=== PATIENT | female | born 1975 | race Caucasian/White ===

== ENCOUNTER → 2021-01-11 09:50 | Outpatient (BNVA) | payer OTHER, SELFPAY | PROVIDERS: Family Provider Family Medicine; PCP Family Medicine; Visit Provider Internal Medicine Rheumatology | DX: M33.10 Other dermatomyositis, organ involvement unspecified (principal); Z79.899 Other long term (current) drug therapy; R76.8 Other specified abnormal immunological findings in serum; Z11.59 Encounter for screening for other viral diseases; Z11.1 Encounter for screening for respiratory tuberculosis; Z20.822 Contact with and (suspected) exposure to COVID-19 | CPT/HCPCS: 99204 ==

== ENCOUNTER 2021-01-14 11:00 | Outpatient (CLI) | payer OTHER, SELFPAY ==
--- NOTE | 2021-01-14 11:15 | XR_ITS ---
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 Findings: No nodules, masses or effusions are seen. The heart is normal. The pulmonary vascularity is not increased. No pneumonia or pneumothorax is seen. There is a moderate dextroscoliosis of the thor acic spine XR/XR chest 2V* [id number] Impression: Negative chest.
== END 2021-01-14 11:01 | disposition home or self-care (01) ==
LOC: RADWPI 11:05
PROVIDERS: PCP Family Medicine; Visit Provider Internal Medicine Rheumatology
DX: Z79.899 Other long term (current) drug therapy (principal); M33.90 Dermatopolymyositis, unspecified, organ involvement unspecified
CPT/HCPCS: 71046

== ENCOUNTER → 2021-02-22 14:20 | Outpatient (BNVA) | payer OTHER, SELFPAY | PROVIDERS: PCP Family Medicine; Visit Provider Internal Medicine Rheumatology | DX: Z11.52 Encounter for screening for COVID-19 (principal); Z20.822 Contact with and (suspected) exposure to COVID-19; Z01.812 Encounter for preprocedural laboratory examination; M33.10 Other dermatomyositis, organ involvement unspecified; R76.8 Other specified abnormal immunological findings in serum; Z79.899 Other long term (current) drug therapy; Z71.89 Other specified counseling | CPT/HCPCS: 87635; 99214 ==

== ENCOUNTER 2021-02-28 08:46 | Outpatient (CLI) | payer OTHER, SELFPAY ==
--- NOTE | 2021-02-28 12:33 | PFTS_ITS ---
Date of Study:02/28/21 Date of Dictation: MECHANICS: Forced vital capacity (FVC) is normal. Forced expiratory volume in one second (FEV1) is normal. FEV1/FVC is normal. FLOW VOLUME LOOP: Normal. LUNG VOLUMES: Total lung capacity (TLC) is normal. Residual volume (RV) is normal. DIFFUSING CAPACITY FOR CARBON MONOXIDE: Normal. INTERPRETATION: The pulmonary function tests are normal. Lung volumes are normal. Gas exchange (DLCO) is normal. MTDD
== END 2021-02-28 08:47 | disposition home or self-care (01) ==
LOC: RT 08:53
PROVIDERS: PCP Family Medicine; Visit Provider Internal Medicine Rheumatology
DX: M33.90 Dermatopolymyositis, unspecified, organ involvement unspecified (principal); Z79.899 Other long term (current) drug therapy
CPT/HCPCS: 94010; 94726; 94729

== ENCOUNTER 2021-03-23 09:33 | Outpatient (CLI) | payer OTHER, SELFPAY ==
--- NOTE | 2021-03-23 09:40 | MM_ITS ---
WS: [id number] BILATERAL DIGITAL SCREENING MAMMOGRAM WITH CAD CLINICAL INFORMATION: SCREENING HISTORY: Screening mammogram. No current complaints. COMPARISON: TECHNIQUE: Bilateral CC and MLO. FINDINGS: The breast are composed of extremely dense tissue, which can limit the detection of small underlying mass lesions. Vascular calcification. A few punctate calcifications. Dense nodular breast tissue is s imilar in appearance. No suspicious focal mass, asymmetry, calcifications, or architectural distortio n. No evidence of malignancy. MM/[place] [id number] IMPRESSION: BI-RADS: 2-Benign FOLLOW UP: 1 Year Follow-up Recommend return to annual screening mammography.
== END 2021-03-23 09:34 | disposition home or self-care (01) ==
LOC: RADSHAW 09:36
PROVIDERS: PCP Family Medicine; Visit Provider Family Medicine
DX: Z12.31 Encounter for screening mammogram for malignant neoplasm of breast (principal)
CPT/HCPCS: 77067

== ENCOUNTER → 2021-05-02 08:17 | Outpatient (BNVA) | payer OTHER, SELFPAY | PROVIDERS: PCP Family Medicine; Visit Provider Obstetrics & Gynecology Gynecologic Oncology | DX: Z01.812 Encounter for preprocedural laboratory examination (principal); Z20.822 Contact with and (suspected) exposure to COVID-19 | CPT/HCPCS: 87635 ==

== ENCOUNTER 2021-05-18 08:04 | Outpatient (CLI) | payer OTHER, SELFPAY ==
[2021-05-18 08:52] LABS: Basophils % 0.7 %; Eosinophils # 0.1 10^3/uL (0.0-0.8); Eosinophils % 2.6 %; Hematocrit 43.5 % (37.0-47.0); Hemoglobin 13.5 g/dL (11.5-15.3); Lymphocytes # 1.5 10^3/uL (0.8-4.8); Lymphocytes % 27.7 %; Mean Corpuscular Hemoglobin 28.2 pg (28.0-34.0); Mean Corpuscular Volume 90.8 fl (81-99); Mean Platelet Volume 10.9 fL (7.4-10.4); Monocytes # 0.4 10^3/uL (0.2-0.9); Monocytes % 7.2 %; Neutrophils # 3.36 10^3/uL (1.8-7.7); Neutrophils % 61.6 %; Nucleated Red Blood Cells % 0 %; Platelet Count 275 10^3/cmm (130-400); Red Blood Count 4.79 10^6/uL (4.1-5.3); Red Cell Distribution Width 13.4 % (12.1-15.1); White Blood Count 5.5 10^3/uL (4.0-10.0)
[2021-05-18 09:30] LABS: Alanine Aminotransferase 15 U/L (0-33); Albumin Level 4.3 g/dL (3.5-5.2); Alkaline Phosphatase 54 IU/L (35-105); Aspartate Amino Transferase 26 U/L (0-32); C Reactive Protein 0.6 mg/L (0.0-4.9); Globulin 3.4 g/dL (1.3-4.6); Glomerular Filtration Rate 106.7 mL/min (90-130); Total Bilirubin 0.4 mg/dL (0.15-1.2); Total Protein 7.7 g/dL (6.6-8.7)
[2021-05-18 11:03] LABS: Ferritin 17 ng/mL (15-150)
[2021-05-25 00:42] LABS: HMGCR IgG Antibody <2 CU (<20)
== END 2021-05-18 08:05 | disposition home or self-care (01) ==
LOC: LAB 08:11
PROVIDERS: PCP Family Medicine; Visit Provider Internal Medicine Rheumatology
DX: L30.8 Other specified dermatitis (principal); M33.10 Other dermatomyositis, organ involvement unspecified; R76.8 Other specified abnormal immunological findings in serum; Z79.899 Other long term (current) drug therapy
CPT/HCPCS: 36415; 80076; 82565; 82728; 83516; 83520; 85025; 86140

== ENCOUNTER → 2021-05-24 14:40 | Outpatient (BNVA) | payer OTHER, SELFPAY | PROVIDERS: PCP Family Medicine; Visit Provider Internal Medicine Rheumatology | DX: M33.10 Other dermatomyositis, organ involvement unspecified (principal); R76.8 Other specified abnormal immunological findings in serum; Z79.899 Other long term (current) drug therapy; Z71.89 Other specified counseling | CPT/HCPCS: 99214 ==

== ENCOUNTER 2021-06-03 13:02 | Outpatient (CLI) | payer OTHER, SELFPAY ==
--- NOTE | 2021-06-03 13:00 | CT_ITS ---
WS: [id number] Exam: CT chest abdomen w con* Date/Time of Exam: 06/03/2021 1:03 PM Reason For Exam: D50.9 - Iron deficiency anemia, unspecified DLP: 821.[address] scans at [facility] use at least one of these dose optimization techniques: automated e xposure control; mA and/or kV adjustment per patient size (includes targeted exams where dose is matc hed to clinical indication); or iterative reconstruction. CT scan of the chest with contrast. The lungs are clear and fully expanded. No pulmonary mass or nodule. The airway is patent. No pleural or pericardial effusion. No mediastinal or hilar lymphadenopathy. The thoracic aorta is normal in ca liber. The central pulmonary arteries are clear. Pectus excavatum. No axillary lymphadenopathy. Bony structures are intact. The chest wall is unremarkable. CT/CT chest abdomen w con* IMPRESSION: 1. No pulmonary mass or lymphadenopathy in the chest. Moderate pectus excavatum deformity. CT scan of the abdomen and pelvis with contrast. The liver, gallbladder, stomach, spleen and pancreas appear normal. The abdomin al aorta is normal in caliber. The portal vein and IVC are patent. Normal adren al glands and kidneys. No free air. No lymphadenopathy. No free fluid. Small erika wel loops are normal in caliber. Normal appendix visualized. No obvious large b owel abnormality. Bony structures are unremarkable. IMPRESSION: 1. No mass, lymphadenopathy or acute finding in the abdomen.
[2021-06-03] MEDS: iohexol 300 mg/mL 50 mL Btl PO (13:04)
[2021-06-03] MEDS: iohexol 300 mg/mL 100 mL Btl IV (13:20)
== END 2021-06-03 13:03 | disposition home or self-care (01) ==
PROVIDERS: PCP Family Medicine; Visit Provider Internal Medicine Rheumatology
DX: D50.9 Iron deficiency anemia, unspecified (principal); M33.10 Other dermatomyositis, organ involvement unspecified; R76.8 Other specified abnormal immunological findings in serum
CPT/HCPCS: 71260; 74160; Q9967

== ENCOUNTER 2021-06-23 09:00 | Outpatient (CLI) | payer OTHER, SELFPAY ==
[2021-06-23 10:08] LABS: Ferritin 18 ng/mL (15-150); Iron 74 ug/dL (37-145); Percent Saturation 23.7 % (20-50); Total Iron Binding Capacity 312 mcg/dl; Unsaturated Iron Binding 238 ug/dL (112-347)
[2021-06-23 11:25] LABS: Basophils % 0.9 %; Eosinophils # 0.1 10^3/uL (0.0-0.8); Eosinophils % 2.1 %; Hematocrit 37.5 % (37.0-47.0); Hemoglobin 12.5 g/dL (11.5-15.3); Lymphocytes # 1.3 10^3/uL (0.8-4.8); Mean Corpuscular HGB Conc 33.3 g/dL (30.0-36.0); Monocytes # 0.4 10^3/uL (0.2-0.9); Monocytes % 8.5 %; Neutrophils # 2.57 10^3/uL (1.8-7.7); Neutrophils % 59.3 %; Nucleated Red Blood Cells % 0 %; Platelet Count 200 10^3/cmm (130-400); Red Blood Count 4.31 10^6/uL (4.1-5.3); White Blood Count 4.3 10^3/uL (4.0-10.0)
--- NOTE | 2021-06-23 11:44 | ONC CON_ITS ---
Dr. Tavera New Patient Note Patient: Lori Joya V Unit #: [id number]: [id number] Dicatated By: Zachery Tavera M.D.Date of Visit: Jun 23, 2021 Onc MED New Patient/Consult Referring Physician: Dr. Luis Interiano M.D. History of Present Illness: Ms. Nannette Joya, is a 46-year-old female with a longstanding history of iron deficiency, as per patient first time she was diagnosed with iron deficiency anemia during her first at that time she was given oral iron but she could not tolerate due to upset stomach. Then they were tried on a couple of other occasion with a different formulation and including liquid iron but every time she will get upset stomach including nausea, indigestion, pain. As per patient she has been feeling weak and tired and fatigue although her hemoglobin stay in the normal range but she always has iron deficiency, and she was told that her symptoms could be due to severe iron deficiency and every time she tried oral iron, she could not tolerate. Patient still having menstrual periods, as per patient usually the last 4 to 5 days they are irregular but first 2 days they are heavy. 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 Past Surgical History: Ms. Joya's surgical/procedural history consists of tubal ligation. Medications: amLODIPine Besylate 1 Tablet (of 10 mg) Oral daily, Ascorbic Acid 1 g (of 1000 mg) Tablet Oral daily, Aspirin 1 Tablet (of 81 mg) Tablet, enteric coated Oral daily, Betamethasone Dipropionate 1 (0.05 %) Ointment Topical daily, Clobetasol Propionate 1 (0.05 %) Cream Topical b.i.d., HYDROcodone-Acetaminophen Tablet Oral PRN, Hydroxychloroquine Sulfate 1 Tablet (of 200 mg) Oral daily, Mupirocin 1 (2 %) Ointment Topical b.i.d. Allergies: Isosorbide Mononitrate Social History: Ms. Joya is . Ms. Joya has never smoked. She has no history of drinking. Family History: There is no documented family history. Review Of Symptoms: Review of Systems is not available for this patient. Vital Signs: Most recent vitals are not available for this patient. Performance Status: 0 - Fully active, able to carry on all predisease activities without restrictions. (ECOG) Physical Examination: ENMT - No mouth sores, no thrush, no jaundice, no cervical lymphadenopathy, Respiratory - Lungs are clear to auscultation, Cardiovascular - Regular rate and rhythm of heart, Abdomen - Soft, bowel sounds present, Extremities - No visible edema. Lab/Imaging: Most recent lab results are not available for this patient. Impression: Severe iron deficiency with normal hemoglobin etiology multifactorial including chronic blood loss due to heavy menses or GI bleeding or malabsorption Heavy menstrual especially first 2 days usually last 4 to 5 days regularly Generalized weakness and fatigue Intolerance to oral iron Plan: Discussed with patient regarding her labs ferritin 18, iron saturation 23.7, iron 74, TIBC 312, CBC is pending Clinically, patient is doing reasonably well now with symptomatic iron deficiency although her CBC done on May 18, 2021 showed hemoglobin 13.5 hematocrit 43.5 MCV 90.8 Etiology for iron deficiency could be multifactorial including due to heavy menstrual periods or chronic GI blood loss or malabsorption, as per patient she tried oral iron but could not tolerate due to GI symptoms and now she is symptomatic due to iron deficiency especially generalized weakness and fatigue, at this point, we will consider parenteral iron with Injectafer 750 mg IV weekly x2 and then patient return to clinic 1 month after second dose with CBC and iron studies Patient is already scheduled for colonoscopy/EGD on July [address] Ernst, will follow with the reports. All the side effect possible benefits with parenteral iron including but not limited to, allergic reaction, headaches, nausea vomiting, were mentioned, will obtain approval from insurance prior to the treatment. Signed By: Zachery Tavera M.D. <<Signature on File>>
== END 2021-06-23 09:01 | disposition home or self-care (01) ==
LOC: ONCMED 09:03
PROVIDERS: PCP Family Medicine; Visit Provider Internal Medicine Hematology & Oncology
DX: D50.0 Iron deficiency anemia secondary to blood loss (chronic) (principal); N92.0 Excessive and frequent menstruation with regular cycle; R53.1 Weakness; R53.82 Chronic fatigue, unspecified; Z79.899 Other long term (current) drug therapy
CPT/HCPCS: 36415; 82728; 83540; 83550; 85025; 99205

== ENCOUNTER 2021-06-29 06:53 | Outpatient (CLI) | payer OTHER, SELFPAY ==
[2021-06-29] MEDS: ferric carboxy (IVPB) 750 MG in sodium chloride 0.9% (100 ml) 100 ML 460 MG IV (11:10)
== END 2021-06-29 06:54 | disposition home or self-care (01) ==
LOC: ONCMED 07:05
PROVIDERS: PCP Family Medicine; Visit Provider Internal Medicine Hematology & Oncology
DX: D50.0 Iron deficiency anemia secondary to blood loss (chronic) (principal)
CPT/HCPCS: 96365; J1439

== ENCOUNTER → 2021-07-05 12:59 | Outpatient (BNVA) | payer OTHER, SELFPAY | PROVIDERS: PCP Family Medicine; Visit Provider Internal Medicine | DX: Z01.812 Encounter for preprocedural laboratory examination (principal); M33.10 Other dermatomyositis, organ involvement unspecified; Z11.52 Encounter for screening for COVID-19; Z20.822 Contact with and (suspected) exposure to COVID-19 | CPT/HCPCS: 87635 ==

== ENCOUNTER 2021-07-06 06:46 | Outpatient (CLI) | payer OTHER, SELFPAY ==
[2021-07-06] MEDS: ferric carboxy (IVPB) 750 MG in sodium chloride 0.9% (100 ml) 100 ML 460 MG IV (13:56)
== END 2021-07-06 06:47 | disposition home or self-care (01) ==
LOC: ONCMED 06:47
PROVIDERS: PCP Family Medicine; Visit Provider Internal Medicine Hematology & Oncology
DX: D50.9 Iron deficiency anemia, unspecified (principal)
CPT/HCPCS: 96365; J1439

== ENCOUNTER 2021-07-06 15:11 | Outpatient (CLI) | payer OTHER, SELFPAY ==
--- NOTE | 2021-07-06 15:45 | US_ITS ---
WS: [id number] ULTRASOUND PELVIS TECHNIQUE: Transvaginal. CLINICAL INFORMATION: D50.9 - Iron deficiency anemia, unspecified LMP: ? : No. COMPARISON: None. FINDINGS: Uterus Orientation: Anteverted. Size: 7.3 x 3.8 x 5.6 cm Masses: None. Cervix: Normal. Endometrium: Heterogeneous Endometrium thickness: 13.6 mm. Adnexa: Normal. Right ovary size: 3.0 x 1.9 x 1.1 cm. Left ovary size: 2.0 x 1.1 x 2.4 cm. Free fluid: None. Other findings: None. US/US transvaginal [id number] IMPRESSION: 1. Thickened heterogeneous endometrium measuring 13.6 mm. This can be further evaluated with hysteroscopy. 2. Ovaries are normal. 3. No adnexal masses.
== END 2021-07-06 15:12 | disposition home or self-care (01) ==
PROVIDERS: PCP Family Medicine; Visit Provider Internal Medicine Rheumatology
DX: D50.9 Iron deficiency anemia, unspecified (principal); M33.10 Other dermatomyositis, organ involvement unspecified; R76.8 Other specified abnormal immunological findings in serum; N92.0 Excessive and frequent menstruation with regular cycle; N90.89 Other specified noninflammatory disorders of vulva and perineum; R93.89 Abnormal findings on diagnostic imaging of other specified body structures
CPT/HCPCS: 76830

== ENCOUNTER 2021-07-11 05:56 | Day surgery (SDC) | payer OTHER, SELFPAY ==
[2021-07-11 06:00] VITALS: BP 126/85; PULSE 98; RESP 16; TEMP 36.7; O2SAT 100
[2021-07-11] MEDS: sodium chloride 0.9% 1,000 ML 30 ML IV (06:27)
[2021-07-11 06:29] LABS: OR HCG Qualitative Urine Negative (Negative)
--- NOTE | 2021-07-11 06:52 | ANES.PREANE2 ---
Pre-Anesthetic Assessment Pre-Anesthetic Assessment: Height/Weight: Height 1.63 m Weight 53.07 kg Temp Pulse Resp BP Pulse Ox 98.1 F 98 16 126/85 100 07/11/21 06:00 07/11/21 06:00 07/11/21 06:00 07/11/21 06:00 07/11/21 06:00 Preop Diagnosis: Anemia Proposed Procedure: Operation Date: 07/11/21 07:00 Proposed Procedures p EGD/Colon 91547 M33.10(Not Applicable) - Ryan Ernst MD s Colonoscopy 37339 M33.10(Not Applicable) - Ryan Ernst MD Familial anesthetic complications: none Was Beta Dany taken within 24 hours: N/A Was Clonidine taken within 24 hours: N/A Last intake: Intake Last Liquid Date 07/10/21 Last Liquid Time 21:30 Last Solid Date 07/09/21 Last Solid Time 16:30 Last Intake: 21:30 Social: Social History: No alcohol and No tobacco Exam: Pre-Anes Outpt Exam: alert, oriented x 3, clear to auscultation bilaterally and regular rate & rhythm Airway: Submandibular: WNL Cervical ROM: WNL MP: 2 Dentition: Full Pulmonary: Pulmonary: None reported CV/HEM: CV/HEM: Anemia, HTN and Murmur Comments: left carotid dissection Mar 26 Hepatic: Hepatic: None reported GI: GI: None reported Metabolic: Metabolic: None reported Musc/skel: Musc/skel: Scoliosis Neuropsych: Neuropsych: MARTE Anesthetic Plan: ASA status: 3 Anesthesia: MAC Meds/Allergies Current Medications: Current Medications Generic Name Dose Route Start Last Admin Trade Name Freq PRN Reason Stop Dose Admin Sodium Chloride 1,000 mls @ 30 ml s/hr 07/11/21 06:15 07/11/21 06:27 Sodium Chloride 0.9% IV 07/12/21 06:14 30 mls/hr .Q24H ERI Administration PFSH Anesthesia PFSH: Medical History Amyopathic dermatomyositis Autoimmune dermatitis High risk medication use Immunization counseling Positive STACEY (antinuclear antibody) Family History Other Cancer Celiac disease Migraine Denies family history of Rheumatoid arthritis Diabetes Lupus CAD (coronary artery disease) Chronic kidney disease (CKD) Lung disease Hypertension Stroke Social History Smoking and tobacco status: never smoked Alcohol intake: never History of recent travel: No Female Reproductive History: Date of last menstrual period: 06/27/21 Data Anesthesia Other Labs: Laboratory Results - last 48 hr 07/11/21 06:15 Urine HCG, Qual Negative Cardiac Studies: No Data to Display
--- NOTE | 2021-07-11 07:20 | W.PM.OPSFHP ---
Same Day Surgery H&P Indication for Procedure/HPI DATE OF PROCEDURE: July 11, 2021 CHIEF COMPLAINT/INDICATIONFOR SURGICAL PROCEDURE: Rule out GI malignancy PREOP DIAGNOSIS: Anemia PLANNED PROCEDRUE: Operation Date: 07/11/21 07:00 Proposed Procedures p EGD/Colon 91344 M33.10(Not Applicable) - Ryan Ernst MD s Colonoscopy 03367 M33.10(Not Applicable) - Ryan Ernst MD Medications/Allergies* Home Medications Medication Instructions Recorded Confirmed Type clobetasol 0.05 % topical cream 1 applic TOPICAL BID PRN 12/02/20 07/11/21 History ascorbic acid (vitamin C) 1,000 mg 1 g PO DAILY tab 01/11/21 07/11/21 History tablet amlodipine 10 mg tablet 10 mg PO DAILY 04/07/21 07/11/21 History aspirin 81 mg tablet,delayed 81 mg PO DAILY 04/07/21 07/11/21 History release pimecrolimus 1 applic TOPICAL BID 07/06/21 07/11/21 History Allergies/Adverse Reactions Allergy/AdvReac Type Severity Reaction Status Date / Time isosorbide [From Imdur] Allergy multiple Verified 07/11/21 06:17 problems Current Medications: Generic Name Dose Route Start Last Admin Trade Name Freq PRN Reason Stop Dose Admin Sodium Chloride 1,000 mls @ 30 mls/hr 07/11/21 06:15 07/11/21 06:27 Sodium Chloride 0.9% IV 07/12/21 06:14 30 mls/hr .Q24H ERI Administration Pertinent History/Comorbid Conditions* Medical History (Updated 01/11/21 @ 11:15 by Luis Interiano MD) Amyopathic dermatomyositis Autoimmune dermatitis High risk medication use Immunization counseling Positive STACEY (antinuclear antibody) Family History (Updated 01/11/21 @ 10:20 by Sunni Trent LPN) Migraine Cancer Celiac disease Denies family history of Rheumatoid arthritis Diabetes Lupus CAD (coronary artery disease) Chronic kidney disease (CKD) Lung disease Hypertension Stroke Social History Smoking and tobacco status: never smoked Alcohol intake: never History of recent travel: No Pertinent Exam Findings alert, oriented x 3, clear to auscultation bilaterally, regular rate & rhythm, operative site marked and procedure specific exam findings Recommendations Surgery/Procedure today Coding Level of Care Code Acute 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
[2021-07-11 07:41] VITALS: BP 103/66; PULSE 80; RESP 16; TEMP 36.5; O2SAT 99
[2021-07-11 07:50] VITALS: BP 114/79; PULSE 79; RESP 16; O2SAT 98
--- NOTE | 2021-07-11 14:12 | W.PM.OPSFHP ---
Same Day Surgery H&P Indication for Procedure/HPI DATE OF PROCEDURE: July 11, 2021 CHIEF COMPLAINT/INDICATIONFOR SURGICAL PROCEDURE: Follow-up of meat impaction PREOP DIAGNOSIS: Anemia PLANNED PROCEDRUE: Operation Date: 07/11/21 07:00 Proposed Procedures p EGD/Colon 35999 M33.10(Not Applicable) - Ryan Ernst MD s Colonoscopy 10638 M33.10(Not Applicable) - Ryan Ernst MD Medications/Allergies* Home Medications Medication Instructions Recorded Confirmed Type clobetasol 0.05 % topical cream 1 applic TOPICAL BID PRN 12/02/20 07/11/21 History ascorbic acid (vitamin C) 1,000 mg 1 g PO DAILY tab 01/11/21 07/11/21 History tablet amlodipine 10 mg tablet 10 mg PO DAILY 04/07/21 07/11/21 History aspirin 81 mg tablet,delayed 81 mg PO DAILY 04/07/21 07/11/21 History release pimecrolimus 1 applic TOPICAL BID 07/06/21 07/11/21 History Allergies/Adverse Reactions Allergy/AdvReac Type Severity Reaction Status Date / Time isosorbide [From Imdur] Allergy multiple Verified 07/11/21 06:17 problems Pertinent History/Comorbid Conditions* Medical History (Updated 01/11/21 @ 11:15 by Luis Interiano MD) Amyopathic dermatomyositis Autoimmune dermatitis High risk medication use Immunization counseling Positive STACEY (antinuclear antibody) Family History (Updated 01/11/21 @ 10:20 by Sunni Trent LPN) Migraine Cancer Celiac disease Denies family history of Rheumatoid arthritis Diabetes Lupus CAD (coronary artery disease) Chronic kidney disease (CKD) Lung disease Hypertension Stroke Social History Smoking and tobacco status: never smoked Alcohol intake: never History of recent travel: No Pertinent Exam Findings alert, oriented x 3, clear to auscultation bilaterally, regular rate & rhythm, operative site marked and procedure specific exam findings Recommendations Surgery/Procedure today Coding Level of Care Code Acute Mechanical Engineering Officer for Melanie Serrano
--- NOTE | 2021-07-11 14:25 | ANE.PACU2 ---
Inpatient post-anesthesia follow up: Airway intact: Yes Vital signs: Temperature 97.7 F Pulse Rate 79 Respiratory Rate 16 Blood Pressure 114/79 Pulse Oximetry 98 Oxygen Delivery Me thod Room Air Oxygen Flow Rate Fraction of Inspir ed Oxygen Hydration adequate: Yes Nausea and vomiting: No Pain level: 1 Mental status: Baseline
== END 2021-07-11 08:06 | disposition home or self-care (01) ==
PROVIDERS: Anesthesiology; PCP Family Medicine; Visit Provider Internal Medicine
PROC: 0DJ08ZZ Inspection of Upper Intestinal Tract, Via Natural or Artificial Opening Endoscopic (ICD-10-PCS; CPT 43235; principal; 2021-07-11 07:00)
PROC: 0DJD8ZZ Inspection of Lower Intestinal Tract, Via Natural or Artificial Opening Endoscopic (ICD-10-PCS; CPT 45378; 2021-07-11 07:00)
DX: D50.9 Iron deficiency anemia, unspecified (principal); Z79.899 Other long term (current) drug therapy; Z79.82 Long term (current) use of aspirin
CPT/HCPCS: 43235; 45378; 81025; 84703; 96360; 96361; J2704; J7030

== ENCOUNTER 2021-08-01 14:53 | Outpatient (CLI) | payer OTHER, SELFPAY ==
[2021-08-01 15:41] LABS: Basophils % 0.4 %; Eosinophils # 0.2 10^3/uL (0.0-0.8); Eosinophils % 3.8 %; Hematocrit 38.9 % (37.0-47.0); Lymphocytes # 1.4 10^3/uL (0.8-4.8); Lymphocytes % 30.2 %; Mean Corpuscular HGB Conc 33.4 g/dL (30.0-36.0); Mean Corpuscular Hemoglobin 30.7 pg (28.0-34.0); Mean Platelet Volume 10.3 fL (7.4-10.4); Monocytes # 0.3 10^3/uL (0.2-0.9); Monocytes % 7.5 %; Neutrophils # 2.59 10^3/uL (1.8-7.7); Neutrophils % 57.4 %; Nucleated Red Blood Cells % 0 %; Platelet Count 214 10^3/cmm (130-400); Red Blood Count 4.23 10^6/uL (4.1-5.3); Red Cell Distribution Width 13.5 % (12.1-15.1); White Blood Count 4.5 10^3/uL (4.0-10.0)
[2021-08-01 16:05] LABS: Ferritin 725 ng/mL (15-150); Iron 68 ug/dL (37-145); Percent Saturation 36.1 % (20-50); Total Iron Binding Capacity 188 mcg/dl; Unsaturated Iron Binding 120 ug/dL (112-347)
== END 2021-08-01 14:54 | disposition home or self-care (01) ==
LOC: ONCMED 14:57
PROVIDERS: PCP Family Medicine; Visit Provider Internal Medicine Hematology & Oncology
DX: D50.0 Iron deficiency anemia secondary to blood loss (chronic) (principal)
CPT/HCPCS: 36415; 82728; 83540; 83550; 85025

== ENCOUNTER 2021-08-04 06:24 | Outpatient (CLI) | payer OTHER, SELFPAY ==
--- NOTE | 2021-08-04 15:11 | ONC FU_ITS ---
Dr. Tavera follow up note Patient: Lori Joya V Unit #: [id number]: [id number] Dicatated By: Zachery Tavera M.D.Date of Visit:Aug 04, 2021 Onc Med Follow-up/Prog Note History of Present Illness: Ms. aNnnette Joya, is a 46-year-old female with a longstanding history of iron deficiency, as per patient first time she was diagnosed with iron deficiency anemia during her first at that time she was given oral iron but she could not tolerate due to upset stomach. Then they were tried on a couple of other occasion with a different formulation and including liquid iron but every time she will get upset stomach including nausea, indigestion, pain. As per patient she has been feeling weak and tired and fatigue although her hemoglobin stay in the normal range but she always has iron deficiency, and she was told that her symptoms could be due to severe iron deficiency and every time she tried oral iron, she could not tolerate. Patient still having menstrual periods, as per patient usually the last 4 to 5 days they are irregular but first 2 days they are heavy. Patient denies any melena or hematochezia denies any hemoptysis or hematemesis, denies any jaundice denies any dysuria or hematuria Denies any chest pain but fatigue on exertion, denies any palpitation, denies any peripheral numbness, denies any night sweats, denies any weight loss, denies any history of gastric bypass surgery, denies any abdominal fullness or pain Status post Injectafer 750 mg IV weekly x2 on June 29, 2021 and July 06, 2021, with excellent response EGD and colonoscopy for iron deficiency anemia done on July 11, 2021 which shows no obvious source of blood loss. Came for follow-up, denies any specific complaints, no fever chills, no nausea or vomiting, no diarrhea constipation, still having heavy menses and recently underwent ultrasound uterus which shows thickening of endometrium for which she is being evaluated by FOREST FIRE CONTROL OFFICER. Patient underwent EGD and colonoscopy for iron deficiency anemia on July 11, 2021 which shows no obvious source of blood loss. As per patient since Injectafer infusion, she is feeling much better, more energetic, enjoying quality of life Medications: amLODIPine Besylate 1 Tablet (of 10 mg) Oral daily, Ascorbic Acid 1 g (of 1000 mg) Tablet Oral daily, Aspirin 1 Tablet (of 81 mg) Tablet, enteric coated Oral daily, Betamethasone Dipropionate 1 (0.05 %) Ointment Topical daily, Clobetasol Propionate 1 (0.05 %) Cream Topical b.i.d., HYDROcodone-Acetaminophen Tablet Oral PRN, Hydroxychloroquine Sulfate 1 Tablet (of 200 mg) Oral daily, Mupirocin 1 (2 %) Ointment Topical b.i.d. Allergies: Isosorbide Mononitrate Review of Systems: Review of Systems is not available for this patient. Vital Signs: Performed on Aug 04, 2021 08:12 Height - 64 in Weight - 119.6 lbs (HIGH) BSA - 1.57 sq.m BMI - 20.53 Temperature - 97.1 F (LOW) Pulse - 78 /min Respiration - 17 /min BP - 107/73 mm(hg) O2 Sat - 97 % Pain - 0 Fatigue - 0 Performance Status: 0 - Fully active, able to carry on all predisease activities without restrictions. (ECOG) Physical Examination: ENMT - No mouth sores, no thrush, no jaundice, Respiratory - Lungs are clear to auscultation, Cardiovascular - Regular rate and rhythm of heart, Abdomen - Soft, bowel sounds present, Extremities - No visible edema. Lab/Imaging: Most recent lab results are not available for this patient. Impression: Severe iron deficiency with normal hemoglobin etiology multifactorial including chronic blood loss due to heavy menses or GI bleeding or malabsorption Heavy menstrual especially first 2 days usually last 4 to 5 days regularly Generalized weakness and fatigue Intolerance to oral iron Status post Injectafer weekly x2 on June 29, 2021 and July 06, 2021, with resolution of iron deficiency anemia EGD/colonoscopy done on July 11, 2021 shows no obvious cause of gross bleeding Plan: Discussed with patient regarding her labs white blood count 4.5 hemoglobin 13 g compared to 12.5 g previously hematocrit 38.9 platelets 214,000 iron studies shows ferritin 725 compared to 18 previously iron saturation 36.1% iron 88, TIBC 188 Clinically, patient doing well, feeling more energetic and active since Injectafer infusion, her repeat CBC shows hemoglobin in normal range and iron studies shows adequate iron stores. Patient recently underwent EGD/colonoscopy which showed no obvious cause of blood loss. Patient still having heavy menstrual periods for which she underwent ultrasound uterus which shows thickening of endometrial for which she is being evaluated by FOREST FIRE CONTROL OFFICER. Patient return to clinic in 2 months with CBC and iron studies Signed By: Zachery Tavera M.D. <<Signature on File>>
== END 2021-08-04 06:25 | disposition home or self-care (01) ==
LOC: ONCMED 06:24
PROVIDERS: PCP Family Medicine; Visit Provider Internal Medicine Hematology & Oncology
DX: Z09 Encounter for follow-up examination after completed treatment for conditions other than malignant neoplasm (principal); D50.9 Iron deficiency anemia, unspecified; R53.1 Weakness; R53.83 Other fatigue; T45.4X5A Adverse effect of iron and its compounds, initial encounter; R93.89 Abnormal findings on diagnostic imaging of other specified body structures
CPT/HCPCS: 99214

== ENCOUNTER 2021-10-06 09:21 | Outpatient (CLI) | payer OTHER, SELFPAY ==
[2021-10-06 09:54] LABS: Basophils % 0.7 %; Eosinophils # 0.1 10^3/uL (0.0-0.8); Eosinophils % 2.5 %; Hematocrit 40.2 % (37.0-47.0); Hemoglobin 13.1 g/dL (11.5-15.3); Lymphocytes % 21.9 %; Mean Corpuscular HGB Conc 32.6 g/dL (30.0-36.0); Mean Corpuscular Hemoglobin 31.6 pg (28.0-34.0); Mean Corpuscular Volume 97.1 fl (81-99); Mean Platelet Volume 10.2 fL (7.4-10.4); Monocytes # 0.4 10^3/uL (0.2-0.9); Neutrophils # 2.86 10^3/uL (1.8-7.7); Neutrophils % 64.7 %; Nucleated Red Blood Cells % 0 %; Platelet Count 248 10^3/cmm (130-400); Red Blood Count 4.14 10^6/uL (4.1-5.3); White Blood Count 4.4 10^3/uL (4.0-10.0)
[2021-10-06 10:38] LABS: Ferritin 294 ng/mL (15-150); Iron 84 ug/dL (37-145); Percent Saturation 47.4 % (20-50); Total Iron Binding Capacity 177 mcg/dl; Unsaturated Iron Binding 93 ug/dL (112-347)
== END 2021-10-06 09:22 | disposition home or self-care (01) ==
PROVIDERS: PCP Family Medicine; Visit Provider Internal Medicine Hematology & Oncology
DX: D50.9 Iron deficiency anemia, unspecified (principal); Z79.899 Other long term (current) drug therapy
CPT/HCPCS: 36415; 82728; 83540; 83550; 85025; 87635

== ENCOUNTER 2021-10-10 14:49 | Outpatient (CLI) | payer OTHER, SELFPAY ==
--- NOTE | 2021-10-12 18:14 | ONC FU_ITS ---
Dr. Tavera follow up note Patient: Lori Joya V Unit #: [id number]: [id number] Dicatated By: Zachery Tavera M.D.Date of Visit:Oct 10, 2021 Onc Med Follow-up/Prog Note History of Present Illness: Ms. Nannette Joya, is a 46-year-old female with a longstanding history of iron deficiency, as per patient first time she was diagnosed with iron deficiency anemia during her first at that time she was given oral iron but she could not tolerate due to upset stomach. Then they were tried on a couple of other occasion with a different formulation and including liquid iron but every time she will get upset stomach including nausea, indigestion, pain. As per patient she has been feeling weak and tired and fatigue although her hemoglobin stay in the normal range but she always has iron deficiency, and she was told that her symptoms could be due to severe iron deficiency and every time she tried oral iron, she could not tolerate. Patient still having menstrual periods, as per patient usually the last 4 to 5 days they are irregular but first 2 days they are heavy. Patient denies any melena or hematochezia denies any hemoptysis or hematemesis, denies any jaundice denies any dysuria or hematuria Denies any chest pain but fatigue on exertion, denies any palpitation, denies any peripheral numbness, denies any night sweats, denies any weight loss, denies any history of gastric bypass surgery, denies any abdominal fullness or pain Status post Injectafer 750 mg IV weekly x2 on June 29, 2021 and July 06, 2021, with excellent response EGD and colonoscopy for iron deficiency anemia done on July 11, 2021 which shows no obvious source of blood loss. Came for follow-up, denies any specific complaints, no fevers chills, no nausea or vomiting, no diarrhea constipation, no shortness of breath or chest pain, no palpitation, denies any melena or hematochezia denies any hemoptysis hematemesis, denies any jaundice. As per patient she has seen [facility] TE[facility]IST[facility] for dysfunctional uterine bleeding and now scheduled for hysteroscopy in the morning. Medications: amLODIPine Besylate 1 Tablet (of 10 mg) Oral daily, Ascorbic Acid 1 g (of 1000 mg) Tablet Oral daily, Aspirin 1 Tablet (of 81 mg) Tablet, enteric coated Oral daily, Betamethasone Dipropionate 1 (0.05 %) Ointment Topical daily, Clobetasol Propionate 1 (0.05 %) Cream Topical b.i.d., HYDROcodone-Acetaminophen Tablet Oral PRN, Hydroxychloroquine Sulfate 1 Tablet (of 200 mg) Oral daily, Mupirocin 1 (2 %) Ointment Topical b.i.d. Allergies: Isosorbide Mononitrate Review of Systems: Review of Systems is not available for this patient. Vital Signs: Performed on Oct 10, 2021 15:25 Height - 64.00 in BP - 151/96 mm(hg) (HIGH) Performed on Oct 10, 2021 15:24 Height - 64.00 in Weight - 123.4 lbs (HIGH) BSA - 1.59 sq.m BMI - 21.18 Temperature - 98.2 F (LOW) Pulse - 59 /min (LOW) Respiration - 16 /min BP - 152/93 mm(hg) (HIGH) O2 Sat - 99 % Pain - 0 Fatigue - 0 Performance Status: 0 - Fully active, able to carry on all predisease activities without restrictions. (ECOG) Physical Examination: ENMT - No mouth sores, no thrush, no jaundice, Respiratory - Lungs are clear to auscultation, Cardiovascular - Regular rate and rhythm of heart, Abdomen - Soft, bowel sounds present, Extremities - No visible edema. Lab/Imaging: Most recent lab results are not available for this patient. Impression: Severe iron deficiency with normal hemoglobin etiology multifactorial including chronic blood loss due to heavy menses or GI bleeding or malabsorption Heavy menstrual especially first 2 days usually last 4 to 5 days regularly Generalized weakness and fatigue Intolerance to oral iron Status post Injectafer weekly x2 on June 29, 2021 and July 06, 2021, with resolution of iron deficiency anemia EGD/colonoscopy done on July 11, 2021 shows no obvious cause of gross bleeding Plan: Discussed with patient regarding her labs white blood count 4.4 hemoglobin 13.1 hematocrit 40.2 platelets 248,000 iron studies shows iron saturation 47.4% ferritin 294 compared to 725 on August 01, 2021 after Injectafer infusion, iron 84 TIBC 177 Clinically, patient doing well with no new signs symptoms. Follow-up lab work-up shows hemoglobin continue to be in a normal range along with adequate iron stores, will continue to monitor. She will return to clinic in 3 months with CBC and iron studies As far as dysfunctional uterine bleeding is concerned, patient is being followed by [facility] TE[facility]IST[facility] and now scheduled for hysteroscopy in the morning Signed By: Zachery Tavera M.D. <<Signature on File>>
== END 2021-10-10 14:50 | disposition home or self-care (01) ==
PROVIDERS: PCP Family Medicine; Visit Provider Internal Medicine Hematology & Oncology
DX: D50.9 Iron deficiency anemia, unspecified (principal); Z79.899 Other long term (current) drug therapy
CPT/HCPCS: 99214

== ENCOUNTER 2021-10-11 09:14 | Day surgery (SDC) | payer OTHER, SELFPAY ==
[2021-10-10 13:56] VITALS: BMI 20.5
[2021-10-11] MEDS: ketorolac 30 mg/mL INJ IVP (09:49)
[2021-10-11 09:50] LABS: OR HCG Qualitative Urine Negative (Negative)
--- NOTE | 2021-10-11 09:57 | ANES.PREANE2 ---
Pre-Anesthetic Assessment Height/Weight: Height 1.63 m Weight 54.431 kg Preop Diagnosis: AUB, thickened endometrium Operation Date: 10/11/21 11:30 Proposed Procedures p Hysteroscopy w/ Myosure 72310/98849/r93.89/n93.9(Not Applicable) - Grecia Loomis MD s Dilation And Curettage (D&C)(Not Applicable) - Grecia Loomis MD Familial anesthetic complications: None Was Beta Dany taken within 24 hours: N/A Was Clonidine taken within 24 hours: N/A Last intake: Intake Last Liquid Date 10/10/21 Last Liquid Time 23:00 Last Solid Date 10/10/21 Last Solid Time 17:30 Social No alcohol and No tobacco Exam alert, oriented x 3, clear to auscultation bilaterally and regular rate & rhythm Airway Submandibular: within normal limits Cervical ROM: within normal limits Mallampati: Class II Dentition: full CV/HEM Hypertension and Peripheral Vascular Disease Anesthetic Plan ASA status: 2 Anesthesia: General Risk of > 500 ml blood loss (7ml/kg in children): No Medications/Allergies Home Medications Medication Instructions Recorded Confirmed Last Taken Type clobetasol 0.05 % topical cream 1 applic TOPICAL BID PRN 12/02/20 10/10/21 07/08/21 History betamethasone dipropionate 0.05 % 1 applic TOPICAL BID #45 g 12/06/20 10/10/21 07/10/21 Rx topical ointment mupirocin 2 % topical ointment 1 applic TOPICAL BID #22 g 12/15/20 10/10/21 Unknown Rx ascorbic acid (vitamin C) 1,000 mg 1 g PO DAILY tab 01/11/21 10/11/21 10/10/21 History tablet aspirin 81 mg tablet,delayed 81 mg PO DAILY 04/07/21 10/11/21 10/10/21 History release (Adult Aspirin Regimen) tacrolimus 0.1 % topical ointment 1 applic TOPICAL BID #60 g 06/21/21 10/11/21 10/10/21 Rx pimecrolimus 1 % topical cream 1 applic TOPICAL BID 07/06/21 10/10/21 Unknown History apremilast 10 mg (4)-20 mg (4)-30 See Rx Instructions PO PER PKG DIR 09/21/21 10/10/21 Unknown Rx mg (19) tablets in a dose pack #27 ea (Otezla Starter) apremilast 30 mg tablet (Otezla) 30 mg PO BID #60 tab 09/21/21 10/10/21 Unknown Rx lisinopril 5 mg tablet 5 mg PO DAILY 10/03/21 10/11/21 10/10/21 History Allergies Allergy/AdvReac Type Severity Reaction Status Date / Time isosorbide [From Imdur] Allergy multiple Verified 10/10/21 13:54 problems PENDING SALE TO [facility] Anesthesia Medical History 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 High risk medication use History of cervical dysplasia HSIL (high grade squamous intraepithelial lesion) on Pap smear of cervix Immunization counseling Lump of breast, right Positive STACEY (antinuclear antibody) 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) Surgical History History of bilateral tubal ligation 2009 History of colonoscopy 07/2021 History of cone biopsy of cervix History of tonsillectomy 1977 Hx of LASIK 2000 Family History Sister Cancer anal cancer Celiac disease Migraine Mother Hypertension Migraine Sister Migraine Denies family history of Rheumatoid arthritis Diabetes Lupus CAD (coronary artery disease) Clotting disorder Hyperlipidemia Chronic kidney disease (CKD) Bleeding disorder Lung disease Thyroid disease Stroke Social History Smoking and tobacco status: never smoked Alcohol intake: never History of recent travel: No Female Reproductive History Date of last menstrual period: 09/26/21 Data Anesthesia : 10/11/21 09:43 Cardiac Studies: No Data to Display
[2021-10-11 09:58] LABS: Basophils % 0.7 %; Eosinophils # 0.1 10^3/uL (0.0-0.8); Eosinophils % 1.8 %; Hematocrit 42.2 % (37.0-47.0); Hemoglobin 13.5 g/dL (11.5-15.3); Lymphocytes # 1.1 10^3/uL (0.8-4.8); Lymphocytes % 24.4 %; Mean Corpuscular Hemoglobin 31.3 pg (28.0-34.0); Mean Corpuscular Volume 97.9 fl (81-99); Mean Platelet Volume 10.3 fL (7.4-10.4); Monocytes # 0.5 10^3/uL (0.2-0.9); Monocytes % 11.3 %; Neutrophils # 2.71 10^3/uL (1.8-7.7); Neutrophils % 61.3 %; Nucleated Red Blood Cells % 0 %; Platelet Count 262 10^3/cmm (130-400); Red Blood Count 4.31 10^6/uL (4.1-5.3); Red Cell Distribution Width 11.9 % (12.1-15.1); White Blood Count 4.4 10^3/uL (4.0-10.0)
[2021-10-11] MEDS: sodium chloride 0.9% 1,000 ML 30 ML IV (10:09)
--- NOTE | 2021-10-11 10:29 | W.PM.OPSUD ---
Surgery/Procedure H&P Update DATE OF PROCEDURE: October 11, 2021 DATE H&P PERFORMED: 10/03/21 H&P UPDATE INFORMATION: I have reviewed H&P completed within last 30 days, I have examined patient prior to procedure and No changes to prior documentation PREOP DIAGNOSIS: AUB, thickened endometrium PLANNED PROCEDURE: Operation Date: 10/11/21 11:30 Proposed Procedures p Hysteroscopy w/ Myosure 52104/60868/r93.89/n93.9(Not Applicable) - Grecia Loomis MD s Dilation And Curettage (D&C)(Not Applicable) - Grecia Loomis MD Related Problem List Diagnoses (1) Thickened endometrium: (2) Abnormal uterine bleeding (AUB):
--- NOTE | 2021-10-11 11:36 | P.OP_ITS ---
Operative Report Date of procedure: October 11, 2021 Pre-op diagnosis: Preop Diagnosis AUB, thickened endometrium Post-op diagnosis: same Post-op diagnosis: with endometrial polyps Post-op findings: 9 week sized uterus with many endometrial polyps Procedure done: hysteroscopy, dilation and curettage with myosure Specimens removed/disposition: endometrial curettings to pathology Surgeon: Grecia Loomis Anesthesia: General Estimated blood loss (mL): 5 IV fluids (mL): 300 Complications: none Findings: 9 week sized uterus with several endometrial polyps hysteroscopy Deficit is 770 ml Condition: stable Disposition: PACU Procedure: The patient was taken to the operating room where monitored anesthesia was administered and to be adequate. She was prepped and draped in the normal sterile fashion in the dorsal lithotomy position in Isaiah stirrups. A weighted speculum was placed into the vagina and the anterior lip of the cervix grasped with a single-tooth tenaculum. The uterus was sounded to 9 cm. The cervix was dilated to 16 [place]. The hysteroscope was advanced into the endometrial cavity. There were multiple polyps visualized. The MyoSure device was activated and the tissue was removed. Pictures were taken pre and post procedure. All instruments were removed. The patient tolerated the procedure well. Sponge lap and needle counts were correct x3. She was taken to the recovery room in stable condition.
--- NOTE | 2021-10-11 11:40 | PM.DCS ---
Discharge Providers Date of Admission: 10/11/21 Date of Discharge: October 11, 2021 Attending Provider at Admission: Dr. Loomis Attending Provider at Discharge: Grecia Loomis MD Primary Care Provider: France Villegas MD Diagnoses at Discharge Discharge Diagnosis (1) Thickened endometrium: Status: Acute (2) Abnormal uterine bleeding (AUB): Status: Acute Reason for Visit Reason for Visit: abnormal uterine bleeding Hospital Course Hospital Course The patient was admitted for surgery. She did well postoperatively and was ready for discharge once she was recovered. Discharge Data Studies Completed and Pending Pending at discharge Category Date Time Status ES surgery / GI images Routine Exams 10/11/21 11:11 Taken Laboratory Results WBC 4.4 10^3/uL (4.0-10.0) 10/11/21 09:43 RBC 4.31 10^6/uL (4.1-5.3) 10/11/21 09:43 Hgb 13.5 g/dL (11.5-15.3) 10/11/21 09:43 Hct 42.2 % (37.0-47.0) 10/11/21 09:43 MCV 97.9 fl (81-99) 10/11/21 09:43 MCH 31.3 pg (28.0-34.0) 10/11/21 09:43 MCHC 32.0 g/dL (30.0-36.0) 10/11/21 09:43 RDW 11.9 % (12.1-15.1) L 10/11/21 09:43 Plt Count 262 10^3/cmm (130-400) 10/11/21 09:43 MPV 10.3 fL (7.4-10.4) 10/11/21 09:43 Neut % (Auto) 61.3 % 10/11/21 09:43 Lymph % (Auto) 24.4 % 10/11/21 09:43 [place] % (Auto) 11.3 % 10/11/21 09:43 Eos % (Auto) 1.8 % 10/11/21 09:43 Baso % (Auto) 0.7 % 10/11/21 09:43 Neut # (Auto) 2.71 10^3/uL (1.8-7.7) 10/11/21 09:43 Lymph # (Auto) 1.1 10^3/uL (0.8-4.8) 10/11/21 09:43 [place] # (Auto) 0.5 10^3/uL (0.2-0.9) 10/11/21 09:43 Eos # (Auto) 0.1 10^3/uL (0.0-0.8) 10/11/21 09:43 Baso # (Auto) 0.0 10^3/uL (0.0-0.1) 10/11/21 09:43 Nucleated RBC % (auto) 0 % 10/11/21 09:43 Nucleated RBCs # 0.0 /100WBC 10/11/21 09:43 Urine HCG, Qual Negative (Negative) 10/11/21 09:24 Discharge Plan Discharge Patient Disposition: Home Condition: Stable Prescriptions: Continued ascorbic acid (vitamin C) 1,000 mg tablet 1 g PO DAILY 0RF aspirin [Adult Aspirin Regimen] 81 mg tablet,delayed release (DR/EC) 81 mg PO DAILY 0RF clobetasol 0.05 % cream 1 applic topical BID PRN (Reason: rash) 0RF betamethasone dipropionate 0.05 % ointment 1 applic topical BID Qty: 45 1RF Rx Instructions: apply to hands M-F x 3 weeks lisinopril 5 mg tablet 5 mg PO DAILY 0RF Otezla 30 mg tablet 30 mg PO BID Qty: 60 4RF Otezla Starter 10 mg (4)-20 mg (4)-30 mg(19) tablets,dose pack See Rx Instructions PO PER PKG DIR Qty: 27 0RF Rx Instructions: PO PER PKG DIR mupirocin 2 % ointment 1 applic topical BID Qty: 22 1RF Rx Instructions: prn for fingers tacrolimus 0.1 % ointment 1 applic topical BID Qty: 60 1RF Rx Instructions: to hands BID x 3 months then prn pimecrolimus 1 % cream 1 applic TOPICAL BID 0RF Discharge Orders: Discharge Order (Routine); Ordered 10/11/21 Ordered By: Grecia Loomis Discharge Attestations Time Spent in Discharge Care*: less than 30 min Quality Metrics Clinical Quality Measures [ No reported AMI, CVA or VTE this stay] Coding Level of Care Code Acute Chg FW DC note Diagnoses Thickened endometrium R93.89 Abnormal uterine bleeding (AUB) N93.9
[2021-10-11 11:44] VITALS: BP 163/98; PULSE 82; RESP 12; TEMP 36.4; O2SAT 98
[2021-10-11 11:49] VITALS: BP 147/92; PULSE 76; RESP 16; O2SAT 99
--- NOTE | 2021-10-11 11:49 | P.PCN_ITS ---
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
--- NOTE | 2021-10-11 11:49 | PM.PACU ---
PACU note Narrative: VSS, Good respiratory effort, report to [employer] [employer] Exam: awake
[2021-10-11 11:54] VITALS: BP 152/89; PULSE 79; RESP 16; O2SAT 98
[2021-10-11 11:58] VITALS: BP 138/93; PULSE 79; RESP 18; TEMP 36.2; O2SAT 99
[2021-10-11 12:02] VITALS: BP 153/86; PULSE 69; RESP 16; TEMP 36.5; O2SAT 100
[2021-10-11 12:21] VITALS: BP 160/96; PULSE 70; RESP 18; O2SAT 98
--- NOTE | 2021-10-11 15:31 | ANE.PACU2 ---
Inpatient post-anesthesia follow up: Airway intact: Yes Vital signs: Temperature 97.7 F Pulse Rate 70 Respiratory Rate 18 Blood Pressure 160/96 Pulse Oximetry 98 Oxygen Delivery Me thod Room Air Oxygen Flow Rate Fraction of Inspir ed Oxygen Hydration adequate: Yes Nausea and vomiting: No Pain level: 2 Mental status: Baseline
== END 2021-10-11 12:35 | disposition home or self-care (01) ==
PROVIDERS: PCP Family Medicine; Visit Provider Obstetrics & Gynecology
PROC: 0UDB8ZZ Extraction of Endometrium, Via Natural or Artificial Opening Endoscopic (ICD-10-PCS; CPT 58558; principal; 2021-10-11 11:20)
PROC: (CPT 58120; 2021-10-11 11:20)
DX: N93.9 Abnormal uterine and vaginal bleeding, unspecified (principal); R93.89 Abnormal findings on diagnostic imaging of other specified body structures; I10 Essential (primary) hypertension; I73.9 Peripheral vascular disease, unspecified; Z79.82 Long term (current) use of aspirin
CPT/HCPCS: 58558; 81025; 84703; 85025; 88305; J0330; J0690; J1100; J1885; J2405; J2704; J3010; J3490; J7030

== ENCOUNTER 2021-10-19 08:49 | Outpatient (CLI) | payer OTHER, SELFPAY ==
--- NOTE | 2021-10-19 09:01 | US_ITS ---
WS: [id number] ULTRASOUND BREAST RIGHT TECHNIQUE: Ultrasound right breast focused area of concern. CLINICAL INFORMATION: N63.10 - Unspecified lump in the right breast, unspecifie... COMPARISON: March 23, 2021 FINDINGS: Ultrasound RIGHT breast at the 3 to 5:00 position. Ultrasound at the areola. Incidental cluster of si mple and slightly complex breast cysts at the 1:00 position. The largest cyst measuring 1.3 x 1.3 cm. These have a benign appearance. Ductal ectasia deep to the areola. Dilated duct with intraductal inspissated debris in the area of th e nipple measuring 8.6 x 7.0 x 5.2 mm. No internal vascularity. This is probably benign and recommend 3 month follow-up ultrasound. US/US breast RT limited* [id number] IMPRESSION: BI-RADS 3 probably benign Recommend 3 month follow-up ultrasound.
== END 2021-10-19 08:50 | disposition home or self-care (01) ==
LOC: RAD 08:49
PROVIDERS: PCP Family Medicine; Visit Provider Obstetrics & Gynecology
DX: N63.10 Unspecified lump in the right breast, unspecified quadrant (principal)
CPT/HCPCS: 76642

== ENCOUNTER 2022-02-01 10:17 | Outpatient (CLI) | payer OTHER, SELFPAY ==
--- NOTE | 2022-02-01 10:23 | US_ITS ---
WS: [id number] ULTRASOUND RIGHT BREAST, limited HISTORY: N60.49 - Mammary duct ectasia of unspecified breast COMPARISON: 10/19/2021 TECHNIQUE: 2-D and Doppler. In the RIGHT breast at 1:00, anterior, there is an ovoid well-circumscribed mass measuring 1.3 x 1.4 x 0.8 cm. Low level echoes throughout. No increased vascularity. There is through transmission. There is an additional adjacent similar mass but smaller measuring 0.8 x 0.8 x 0.6 cm at 1:00. There are a lso dilated ducts with debris in the ducts. There is no increased vascularity. Ducts are dilated to 6 mm. These areas have become more complex as compared to the prior study. US/US breast RT limited* [id number] IMPRESSION: BI-RADS: 4-Suspicious Finding-Biopsy Should Be Considered FOLLOW-UP: Biopsy Recommended 1. Duct ectasia with debris at the nipple. Mild progression of findings. 2. Previously described cysts at 1:00 now are not simple cysts but contain jake ris. 3. I favor both of these findings are probably benign but due to the progressi on. Recommend biopsy. Solid material within the duct adjacent to the nipple aquilino uld undergo biopsy. At least the largest mass at 1:00 which is probably a compl ex cyst should be biopsied also.
== END 2022-02-01 10:18 | disposition home or self-care (01) ==
LOC: RAD 10:19
PROVIDERS: PCP Family Medicine; Visit Provider Surgery
DX: N60.41 Mammary duct ectasia of right breast (principal)
CPT/HCPCS: 76642

== ENCOUNTER 2022-02-13 16:30 | Outpatient (CLI) | payer OTHER, SELFPAY ==
[2022-02-13 17:35] LABS: Creatine Phosphokinase 56 U/L (26-192)
[2022-02-15 13:23] LABS: Aldolase 4.4 U/L (< OR = 8.1)
== END 2022-02-13 16:31 | disposition home or self-care (01) ==
LOC: LAB 16:33
PROVIDERS: PCP Family Medicine; Visit Provider Internal Medicine Rheumatology
DX: M33.10 Other dermatomyositis, organ involvement unspecified (principal); M62.81 Muscle weakness (generalized); Z79.899 Other long term (current) drug therapy
CPT/HCPCS: 36415; 82085; 82550

== ENCOUNTER 2022-02-27 08:27 | Outpatient (CLI) | payer OTHER, SELFPAY ==
--- NOTE | 2022-02-27 | US_ITS ---
NOTE: Report was unsigned for reason: Order was edited. Original Signature date and time was: 03/06/2012 1216 WS: [id number] ULTRASOUND-GUIDED RIGHT BREAST BIOPSY CLINICAL INFORMATION: N60.09 - Solitary cyst of unspecified breast COMPARISON: None. FINDINGS: The procedure including risks, benefits, and complications were discussed with the patient who agreed to proceed. Using sterile technique patient was prepped and draped in the usual sterile fashion. After 1% lidocaine utilizing real-time ultrasound guidance 4 14-gauge cores were obtained of the RIGHT breast lesion at the nipple. Titanium marker was NOT placed at the nipple. Next RIGHT breast biopsy was performed with 4 samples obtained. Additional aspiration was performed of this lesion with aspiration to 3 cc of bloody fluid. Titanium marker was placed at the 1:00 position. No immediate complications. Pathology demonstrates A. Breast, right breast mass, at 1:00 , biopsy: - Benign breast tissue with fibrocystic changes. - No malignancy identified. B. Breast, right nipple , biopsy: - Benign squamous epithelium with underlying stromal sclerosis. - No malignancy identified. Overall, the biopsies may be bilingual inside sales representative of benign cyst contents. [facility] [place] [id number] 1. Uncomplicated ultrasound-guided RIGHT breast biopsy x2. 2. The pathology demonstrates benign breast tissue at the 1:00 position and benign squamous epithelium with stromal sclerosis at the nipple. No malignancy identified. RECOMMEND 6 MONTH FOLLOW-UP RIGHT DIAGNOSTIC MAMMOGRAPHY AND ULTRASOUND POSTBIOPSY. BI-RADS: 3-Probably Benign FOLLOW UP: 6 Month Follow-up
--- NOTE | 2022-02-27 | US_ITS ---
WS: [id number] ULTRASOUND-GUIDED RIGHT BREAST BIOPSY CLINICAL INFORMATION: N60.09 - Solitary cyst of unspecified breast COMPARISON: None. FINDINGS: The procedure including risks, benefits, and complications were discussed with the patient who agreed to proceed. Using sterile technique patient was prepped and draped in the usual sterile fashion. Aft er 1% lidocaine utilizing real-time ultrasound guidance 4 14-gauge cores were obtained of the RIGHT b reast lesion at the nipple. Titanium marker was NOT placed at the nipple. Next RIGHT breast biopsy was performed with 4 samples obtained. Additional aspiration was performed o f this lesion with aspiration to 3 cc of bloody fluid. Titanium marker was placed at the 1:00 positio n. No immediate complications. Pathology demonstrates A. Breast, right breast mass, at 1:00 , biopsy: - Benign breast tissue with fibrocystic changes. - No malignancy identified. B. Breast, right nipple , biopsy: - Benign squamous epithelium with underlying stromal sclerosis. - No malignancy identified. Overall, the biopsies may be personal financial representative of benign cyst contents. US/[place] [id number] IMPRESSION: 1. Uncomplicated ultrasound-guided RIGHT breast biopsy x2. 2. The pathology demonstrates benign breast tissue at the 1:00 position and be nign squamous epithelium with stromal sclerosis at the nipple. No malignancy id entified. RECOMMEND 6 MONTH FOLLOW-UP RIGHT DIAGNOSTIC MAMMOGRAPHY AND ULTRASOUND POSTBIO PSY. BI-RADS: 3-Probably Benign FOLLOW UP: 6 Month Follow-up
--- NOTE | 2022-02-27 08:34 | US_ITS ---
WS: [id number] ULTRASOUND-GUIDED RIGHT BREAST BIOPSY CLINICAL INFORMATION: N60.09 - Solitary cyst of unspecified breast COMPARISON: None. FINDINGS: The procedure including risks, benefits, and complications were discussed with the patient who agreed to proceed. Using sterile technique patient was prepped and draped in the usual sterile fashion. Aft er 1% lidocaine utilizing real-time ultrasound guidance 4 14-gauge cores were obtained of the RIGHT b reast lesion at the nipple. Titanium marker was NOT placed at the nipple. Next RIGHT breast biopsy was performed with 4 samples obtained. Additional aspiration was performed o f this lesion with aspiration to 3 cc of bloody fluid. Titanium marker was placed at the 1:00 positio n. No immediate complications. Pathology demonstrates A. Breast, right breast mass, at 1:00 , biopsy: - Benign breast tissue with fibrocystic changes. - No malignancy identified. B. Breast, right nipple , biopsy: - Benign squamous epithelium with underlying stromal sclerosis. - No malignancy identified. Overall, the biopsies may be security systems sales representative of benign cyst contents. US/[place] [id number] IMPRESSION: 1. Uncomplicated ultrasound-guided RIGHT breast biopsy x2. 2. The pathology demonstrates benign breast tissue at the 1:00 position and be nign squamous epithelium with stromal sclerosis at the nipple. No malignancy id entified. RECOMMEND 6 MONTH FOLLOW-UP RIGHT DIAGNOSTIC MAMMOGRAPHY AND ULTRASOUND POSTBIO PSY. BI-RADS: 3-Probably Benign FOLLOW UP: 6 Month Follow-up
== END 2022-02-27 08:28 | disposition home or self-care (01) ==
LOC: RAD 08:28
PROVIDERS: PCP Family Medicine; Visit Provider Surgery
DX: N60.01 Solitary cyst of right breast (principal); N63.12 Unspecified lump in the right breast, upper inner quadrant
CPT/HCPCS: 19000; 19001; 19083; 19084; 76942; 88108; 88305

== ENCOUNTER 2022-03-06 11:53 | Outpatient (CLI) | payer OTHER, SELFPAY ==
[2022-03-06 12:12] VITALS: BP 156/95; PULSE 76; RESP 18; TEMP 37; O2SAT 98
[2022-03-06 12:31] LABS: Basophils % 0.4 %; Eosinophils % 0.4 %; Hemoglobin 13.9 g/dL (11.5-15.3); Lymphocytes # 0.5 10^3/uL (0.8-4.8); Lymphocytes % 7.4 %; Mean Corpuscular HGB Conc 33.9 g/dL (30.0-36.0); Mean Corpuscular Volume 94.5 fl (81-99); Mean Platelet Volume 10.6 fL (7.4-10.4); Monocytes # 0.2 10^3/uL (0.2-0.9); Monocytes % 2.7 %; Neutrophils % 88.8 %; Nucleated Red Blood Cells % 0 %; Platelet Count 243 10^3/cmm (130-400); Red Blood Count 4.34 10^6/uL (4.1-5.3); Red Cell Distribution Width 12.4 % (12.1-15.1); White Blood Count 7.3 10^3/uL (4.0-10.0)
[2022-03-06 12:33] LABS: Erythrocyte Sedimentation Rate 1 mm/hr (0-15)
[2022-03-06] MEDS: sodium chloride 0.9% 250 ML 50 ML IV (12:45)
[2022-03-06] MEDS: acetaminophen 325 mg Tablet 650 MG PO (12:45)
[2022-03-06] MEDS: diphenhydrAMINE 50 mg/mL SDV 1mL 25 MG IV (12:48)
[2022-03-06 13:19] LABS: Alanine Aminotransferase 9 U/L (0-33); Albumin Level 4.7 g/dL (3.5-5.2); Alkaline Phosphatase 60 IU/L (35-105); Aspartate Amino Transferase 16 U/L (0-32); Creatinine Clr Calc Pharmacy 100.7933; Globulin 2.8 g/dL (1.3-4.6); Glomerular Filtration Rate 106.7 mL/min (90-130); Total Bilirubin 0.4 mg/dL (0.15-1.2); Total Protein 7.5 g/dL (6.6-8.7)
[2022-03-06 14:04] VITALS: BP 116/81; PULSE 97; RESP 18; TEMP 36.9; O2SAT 97
[2022-03-06 14:07] VITALS: BP 132/84; PULSE 66; RESP 18; TEMP 37.2; O2SAT 98
[2022-03-06 14:35] VITALS: BP 117/79; PULSE 62; RESP 18; O2SAT 97
[2022-03-06 15:03] VITALS: BP 123/82; PULSE 72; RESP 18; TEMP 36.7; O2SAT 98
[2022-03-06 15:52] VITALS: BP 146/85; PULSE 61; RESP 18; TEMP 36.4; O2SAT 99
== END 2022-03-06 11:54 | disposition home or self-care (01) ==
PROVIDERS: PCP Family Medicine; Referring Provider Internal Medicine Rheumatology; Visit Provider Internal Medicine Rheumatology
DX: M33.10 Other dermatomyositis, organ involvement unspecified (principal); R76.8 Other specified abnormal immunological findings in serum
CPT/HCPCS: 80076; 82565; 85025; 85651; 96365; 96366; 96375; J1200; J1566; J7050

== ENCOUNTER 2022-03-07 08:47 | Outpatient (CLI) | payer OTHER, SELFPAY ==
[2022-03-07] VITALS (7 sets, daily range): BP systolic 118–146; BP diastolic 78–91; PULSE 56–74; RESP 16–18; TEMP 36.8–37.1; O2SAT 98–99
[2022-03-07] MEDS: sodium chloride 0.9% 250 ML 50 ML IV (09:46)
[2022-03-07] MEDS: acetaminophen 325 mg Tablet 650 MG PO (09:47)
[2022-03-07] MEDS: diphenhydrAMINE 50 mg/mL SDV 1mL 25 MG IVP (09:48)
== END 2022-03-07 08:48 | disposition home or self-care (01) ==
PROVIDERS: PCP Family Medicine; Referring Provider Internal Medicine Rheumatology; Visit Provider Internal Medicine Rheumatology
DX: M33.10 Other dermatomyositis, organ involvement unspecified (principal); R76.8 Other specified abnormal immunological findings in serum
CPT/HCPCS: 96365; 96366; 96375; 96413; J1200; J1566; J7050

== ENCOUNTER 2022-03-08 10:53 | Outpatient (CLI) | payer OTHER, SELFPAY ==
[2022-03-08] VITALS (7 sets, daily range): BP systolic 118–138; BP diastolic 81–89; PULSE 67–76; RESP 18; TEMP 36.2–36.9; O2SAT 99
[2022-03-08] MEDS: sodium chloride 0.9% 250 ML 50 ML IV (11:24)
[2022-03-08] MEDS: acetaminophen 325 mg Tablet 650 MG PO (11:28)
[2022-03-08] MEDS: diphenhydrAMINE 50 mg/mL SDV 1mL 25 MG IV (11:29)
== END 2022-03-08 10:54 | disposition home or self-care (01) ==
PROVIDERS: PCP Family Medicine; Referring Provider Internal Medicine Rheumatology; Visit Provider Internal Medicine Rheumatology
DX: M33.10 Other dermatomyositis, organ involvement unspecified (principal); R76.8 Other specified abnormal immunological findings in serum
CPT/HCPCS: 96365; 96366; 96375; J1200; J1566; J7050

== ENCOUNTER 2022-03-08 19:10 | Emergency (ER) | payer OTHER, SELFPAY ==
[2022-03-08 19:23] VITALS: BMI 21.6
[2022-03-08 19:29] VITALS: BP 143/87; PULSE 107; RESP 22; TEMP 36.7; O2SAT 100
[2022-03-08 21:26] LABS: Basophils % 0.4 %; Hematocrit 37.1 % (37.0-47.0); Hemoglobin 12.3 g/dL (11.5-15.3); Lymphocytes # 0.5 10^3/uL (0.8-4.8); Lymphocytes % 6.3 %; Mean Corpuscular HGB Conc 33.2 g/dL (30.0-36.0); Mean Corpuscular Volume 99.5 fl (81-99); Mean Platelet Volume 10.5 fL (7.4-10.4); Monocytes # 0.5 10^3/uL (0.2-0.9); Monocytes % 6.3 %; Neutrophils % 86.7 %; Nucleated Red Blood Cells % 0 %; Platelet Count 231 10^3/cmm (130-400); Red Blood Count 3.73 10^6/uL (4.1-5.3); Red Cell Distribution Width 12.5 % (12.1-15.1); White Blood Count 7.2 10^3/uL (4.0-10.0)
[2022-03-08 22:04] LABS: Alanine Aminotransferase 10 U/L (0-33); Albumin Level 3.7 g/dL (3.5-5.2); Alkaline Phosphatase 55 IU/L (35-105); Anion Gap 13.8 (5-19); Aspartate Amino Transferase 15 U/L (0-32); Blood Urea Nitrogen 10 mg/dL (6-20); Calcium 9.1 mg/dL (8.5-10.5); Carbon Dioxide 25 mmol/L (22-29); Chloride 101 mmol/L (98-107); Creatinine Clr Calc Pharmacy 100.7933; Globulin 5.6 g/dL (1.3-4.6); Glomerular Filtration Rate 106.7 mL/min (90-130); Glucose 103 mg/dL (65-115); Osmolality Calculated 281 mOsm/kg (285-295); Potassium 3.8 mmol/L (3.5-5.1); Sodium 136 mmol/L (136-145); Total Bilirubin 0.8 mg/dL (0.15-1.2); Total Protein 9.3 g/dL (6.6-8.7)
[2022-03-09] MEDS: diphenhydrAMINE 50 mg/mL SDV 1mL IVP (00:31)
[2022-03-09] MEDS: metoclopramide 5 mg/mL SDV 2 mL 10 MG IVP (00:31)
--- NOTE | 2022-03-09 00:49 | CTR_ITS ---
PROCEDURE INFORMATION: Exam: CT Head Without Contrast Exam date and time: 03/09/2022 12:56 AM Age: 46 years old Clinical indication: Stroke-like symptoms; Headache and vomiting; Additional info: C/O headache with dizziness and n/v. Hypertensive. 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 TECHNIQUE: Imaging protocol: Computed tomography of the head without contrast. Radiation optimization: All CT scans at this facility use at least one of these dose optimization techniques: automated exposure control; mA and/or kV adjustment per patient size (includes targeted exams where dose is matched to clinical indication); or iterative reconstruction. Other technique: STROKE PROTOCOL was implemented. COMPARISON: CT head wo con* [id number] 03/28/2021 4:27 PM RADIATION DOSE METRICS: Total DLP (mGy-cm): 995.48 FINDINGS: Brain: There is no evidence of intracranial hemorrhage. Unremarkable white matter. No mass effect or midline shift. There is no brain edema. Cerebral ventricles: The ventricles and sulci are appropriate for the patient's age. Paranasal sinuses: There are no air-fluid levels. Mastoid air cells: The visualized mastoid air cells are well aerated. Bones/joints: No acute fracture. Soft tissues: Unremarkable. CT/CT head wo con* [id number] IMPRESSION: No acute intracranial findings. ASSESSMENT: ASPECTS (Ruby Stroke Program Early CT Score) is 10.
--- NOTE | 2022-03-09 00:49 | CTR_ITS ---
PROCEDURE INFORMATION: Exam: CTA Head With Contrast, Arteriography Exam date and time: 03/09/2022 1:02 AM Age: 46 years old Clinical indication: Stroke-like symptoms; Headache and vomiting; Additional info: C/O headache with dizziness and n/v. Hypertensive. 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 TECHNIQUE: Imaging protocol: Computed tomographic angiography of the head with contrast. Exam focused on the arteries. 3D rendering (Not supervised by radiologist): MIP and/or 3D reconstructed images were created by the technologist. Radiation optimization: All CT scans at this facility use at least one of these dose optimization techniques: automated exposure control; mA and/or kV adjustment per patient size (includes targeted exams where dose is matched to clinical indication); or iterative reconstruction. Contrast material: OMNI 350; Contrast volume: 95 ml; Contrast route: INTRAVENOUS (IV); COMPARISON: CTA Head/Neck [id number] 08/03/2021 11:01 AM RADIATION DOSE METRICS: Total DLP (mGy-cm): 353.77 FINDINGS: ANTERIOR CIRCULATION: Right internal carotid artery: Unremarkable. Intracranial segment is patent with no significant stenosis. No aneurysm. Right middle cerebral artery: Unremarkable. No occlusion or significant stenosis. No aneurysm. Right anterior cerebral artery: Unremarkable. No occlusion or significant stenosis. No aneurysm. Left internal carotid artery: Unremarkable. Intracranial segment is patent with no significant stenosis. No aneurysm. Left middle cerebral artery: Unremarkable. No occlusion or significant stenosis. No aneurysm. Left anterior cerebral artery: Unremarkable. No occlusion or significant stenosis. No aneurysm. POSTERIOR CIRCULATION: Right vertebral artery: Unremarkable. No occlusion or significant stenosis. No aneurysm. Left vertebral artery: Unremarkable. No occlusion or significant stenosis. No aneurysm. Basilar artery: Unremarkable. No occlusion or significant stenosis. No aneurysm. Right posterior cerebral artery: Unremarkable. No occlusion or significant stenosis. No aneurysm. Left posterior cerebral artery: Unremarkable. No occlusion or significant stenosis. No aneurysm. Brain: No definite mass, mass effect, or midline shift. Cerebral ventricles: No ventriculomegaly. Paranasal sinuses: There are small air-fluid levels in the sphenoid sinuses. Bones/joints: Unremarkable. No acute fracture. Soft tissues: Unremarkable. PROCEDURE INFORMATION: Exam: CTA Neck With Contrast Exam date and time: 03/09/2022 1:02 AM Age: 46 years old Clinical indication: Stroke-like symptoms; Headache and vomiting; Additional info: C/O headache with dizziness and n/v. Hypertensive. 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 TECHNIQUE: Imaging protocol: Computed tomographic angiography of the neck with contrast. 3D rendering (Not supervised by radiologist): MIP and/or 3D reconstructed images were created by the technologist. Radiation optimization: All CT scans at this facility use at least one of these dose optimization techniques: automated exposure control; mA and/or kV adjustment per patient size (includes targeted exams where dose is matched to clinical indication); or iterative reconstruction. Contrast material: OMNI 350; Contrast volume: 95 ml; Contrast route: INTRAVENOUS (IV); COMPARISON: CTA Head/Neck [id number] 08/03/2021 11:01 AM RADIATION DOSE METRICS: Total DLP (mGy-cm): 353.77 FINDINGS: Right common carotid artery: No significant stenosis. No dissection or occlusion. Right internal carotid artery: No significant stenosis of the extracranial segment. No dissection or occlusion. Right external carotid artery: No occlusion or significant stenosis of the origin. Left common carotid artery: No significant stenosis. No dissection or occlusion. Left internal carotid artery: No significant stenosis of the extracranial segment. No dissection or occlusion. There is minimal luminal irregularity of the distal extracranial left internal carotid artery, similar to that of the comparison examination. Left external carotid artery: No occlusion or significant stenosis of the origin. Right vertebral artery: No significant stenosis. No dissection or occlusion. Left vertebral artery: No significant stenosis. No dissection or occlusion. Aorta: There is ectasia (mild dilatation) of the ascending thoracic aorta, measuring 4 cm in transaxial diameter, stable from the comparison examination. Soft tissues: No significant soft tissue swelling. Bones/joints: No acute fracture. CT/CT angio headneck* [id number] IMPRESSION: 1. No large vessel stenosis or occlusion. 2. Small air-fluid levels in the sphenoid sinuses. IMPRESSION: 1. Normal right extracranial internal carotid artery by NASCET criteria. 2. The left extracranial internal carotid artery demonstrates no stenosis by NASCET criteria. Its distal segment demonstrates minimal luminal irregularity, not significantly changed from the comparison study. This is consistent with a healed prior dissection. 3. Patent bilateral vertebral arteries. 4. 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 REFERENCES: NASCET CRITERIA. The degree of internal carotid artery stenosis is based on NASCET criteria. Normal is no stenosis. Mild is less than 50% stenosis. Moderate is 50-69% stenosis. Severe is 70% to 99% stenosis. Total occlusion is no detectable patent lumen.
--- NOTE | 2022-03-09 01:07 | ED_ITS ---
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 States she just started this month received 3 treatments states she has been having a headache over the last 2 days. She has a history of migraines but states this 1 has been worse than her typical migraines states her headaches currently 8 out of 10 she does have photophobia and phonophobia. She did have a carotid dissection last year states her headaches not real typical of that either denies any vision changes denies any vomiting or diarrhea or neck pain. 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 History of cervical dysplasia HSIL (high grade squamous intraepithelial lesion) on Pap smear of cervix HERMANN III (vulvar intraepithelial neoplasia III) Surgical History History of bilateral tubal ligation 2009 History of colonoscopy 07/2021 History of cone biopsy of cervix History of hysteroscopy History of tonsillectomy 1977 Hx of LASIK 1999 Family History Sister Cancer anal cancer Celiac disease Migraine Mother Hypertension Migraine Sister Migraine Denies family history of Rheumatoid arthritis Diabetes Lupus CAD (coronary artery disease) Clotting disorder Hyperlipidemia Chronic kidney disease (CKD) Bleeding disorder Lung disease Thyroid disease Stroke Social History Smoking and tobacco status: never smoked Alcohol intake: never History of recent travel: No Female Reproductive History: Date of last menstrual period: 09/26/21 Physical Exam Const: COMMON NORMALS: no acute distress, patient oriented x3 and healthy appearing HENMT: COMMON NORMALS: normocephalic and atraumatic HEAD & SCALP: normoce phalic and atraumatic Eye: COMMON NORMALS: Equal, round and reactive pupils present and EOMs intact bilaterally PUPIL: Yes Equal, round and reactive pupils present Neck/C-Spine: COMMON NORMALS: full ROM and supple Chest: COMMONS NORMALS: normal inspection of the chest and normal palpation of entire chest wall Resp: COMMON NORMALS: normal respiratory effort, No retractions, No use of accessory muscles and clear to auscultation bilaterally AUSCULTATION: clear to auscultation bilaterally Cardio: COMMON NORMALS: regular rate, regular rhythm and No murmurs present (Cardio) RATE: regular rate RHYTHM: regular rhythm GI: COMMON NORMALS: Normal to inspection, nondistended, normoactive bowel sounds present, Soft to palpation, non-tender and no masses PALPATION: Yes Soft to palpation Extremity: COMMON NORMALS: normal to inspection and full ROM Neuro: COMMON NORMALS: patient oriented x3, moves all extremities and no focal motor deficits Psych: COMMON NORMALS: mental status grossly normal, Normal thought process present and cooperative THOUGHT PROCESS: Normal thought process present Skin: COMMON NORMALS: no rashes or lesions noted and no wounds GENERAL SKIN EXAM: no rashes or lesions noted Course Vital Signs: Vital signs: Vital Signs Temperature 98.1 F 03/08/22 19:29 Pulse Rate 107 H 03/08/22 19:29 Respiratory Rate 19 H 03/09/22 01:19 Blood Pressure 143/87 03/08/22 19:29 Pulse Oximetry 100 03/08/22 19:29 Oxygen Delivery Me thod 03/08/22 19:29 MDM - General Adult Medical Decision Making Patient presents here with headache that is likely migraine headache it is completely resolved now she did have a history of dissection CTA showed no new dissection she is stable for discharge she is to follow-up with PCP and return if worsening she understands agrees to plan. Lab Data : 03/08/22 21:04 03/08/22 21:[address] 03/09/22 00:49 IMPRESSION: No acute intracranial findings. ASSESSMENT: ASPECTS ([place] Stroke Program Early CT Score) is 10. ADDENDUM: 03/09/22 0206 The correct statement is as follows: There are small air-fluid levels in the sphenoid sinuses. Head/Neck CTA 03/09/22 00:49 IMPRESSION: 1. No large vessel stenosis or occlusion. 2. Small air-fluid levels in the sphenoid sinuses. IMPRESSION: 1. Normal right extracranial internal carotid artery by NASCET criteria. 2. The left extracranial internal carotid artery demonstrates no stenosis by NASCET criteria. Its distal segment demonstrates minimal luminal irregularity, not significantly changed from the comparison study. This is consistent with a healed prior dissection. 3. Patent bilateral vertebral arteries. 4. 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 REFERENCES: NASCET CRITERIA. The degree of internal carotid artery stenosis is based on NASCET criteria. Normal is no stenosis. Mild is less than 50% stenosis. Moderate is 50-69% stenosis. Severe is 70% to 99% stenosis. Total occlusion is no detectable patent lumen. Laboratory Results WBC 7.2 10^3/uL (4.0-10.0) 03/08/22 21:04 RBC 3.73 10^6/uL (4.1-5.3) L 03/08/22 21:04 Hgb 12.3 g/dL (11.5-15.3) 03/08/22 21:04 Hct 37.1 % (37.0-47.0) 03/08/22 21:04 MCV 99.5 fl (81-99) H 03/08/22 21:04 MCH 33.0 pg (28.0-34.0) 03/08/22 21:04 MCHC 33.2 g/dL (30.0-36.0) 03/08/22 21:04 RDW 12.5 % (12.1-15.1) 03/08/22 21:04 Plt Count 231 10^3/cmm (130-400) 03/08/22 21:04 MPV 10.5 fL (7.4-10.4) H 03/08/22 21:04 Neut % (Auto) 86.7 % 03/08/22 21:04 Lymph % (Auto) 6.3 % 03/08/22 21:04 Dickens % (Auto) 6.3 % 03/08/22 21:04 Eos % (Auto) 0.0 % 03/08/22 21:04 Baso % (Auto) 0.4 % 03/08/22 21:04 Neut # (Auto) 6.20 10^3/uL (1.8-7.7) 03/08/22 21:04 Lymph # (Auto) 0.5 10^3/uL (0.8-4.8) L 03/08/22 21:04 Dickens # (Auto) 0.5 10^3/uL (0.2-0.9) 03/08/22 21:04 Eos # (Auto) 0.0 10^3/uL (0.0-0.8) 03/08/22 21:04 Baso # (Auto) 0.0 10^3/uL (0.0-0.1) 03/08/22 21:04 Nucleated RBC % (auto) 0 % 03/08/22 21:04 Nucleated RBCs # 0.0 /100WBC 03/08/22 21:04 Sodium 136 mmol/L (136-145) 03/08/22 21:04 Potassium 3.8 mmol/L (3.5-5.1) 03/08/22 21:04 Chloride 101 mmol/L (98-107) 03/08/22 21:04 Carbon Dioxide 25 mmol/L (22-29) 03/08/22 21:04 Anion Gap 13.8 (5-19) 03/08/22 21:04 BUN 10 mg/dL (6-20) 03/08/22 21:04 Creatinine 0.6 mg/dL (0.5-0.9) 03/08/22 21:04 GFR Calculation 106.7 mL/min (90-130) 03/08/22 21:04 Glucose 103 mg/dL (65-115) 03/08/22 21:04 Calculated Osmolality 281 mOsm/kg (285-295) L 03/08/22 21:04 Calcium 9.1 mg/dL (8.5-10.5) 03/08/22 21:04 Total Bilirubin 0.8 mg/dL (0.15-1.2) 03/08/22 21:04 AST 15 U/L (0-32) 03/08/22 21:04 ALT 10 U/L (0-33) 03/08/22 21:04 Alkaline Phosphatase 55 IU/L (35-105) 03/08/22 21:04 Total Protein 9.3 g/dL (6.6-8.7) H 03/08/22 21:04 Albumin 3.7 g/dL (3.5-5.2) 03/08/22 21:04 Globulin 5.6 g/dL (1.3-4.6) H 03/08/22 21:04 Discharge Plan Discharge Patient Disposition: Home Clinical Impression: Headache Condition: Stable Prescriptions: No Action ascorbic acid (vitamin C) 1,000 mg tablet 1 g PO DAILY aspirin [Adult Aspirin Regimen] 81 mg tablet,delayed release (DR/EC) 81 mg PO DAILY lisinopril 5 mg tablet 5 mg PO DAILY prednisone 5 mg tablet 5 mg PO DAILY Qty: 30 3RF prednisone 10 mg tablet 5 mg PO DAILY PRN (Reason: for flares) Discharge Orders: Discharge ED (Routine); Ordered 03/09/22 Ordered By: Eder Gunter Referrals: France Villegas MD [Primary Care Provider] - Discharge Diet: Advance as tolerated Discharge Activity: Resume usual activity Patient Instructions: Acute Headache (ED) Coding Level of Care Code ED Practice Specialist for Melanie Fwd Exam Comprehensive
[2022-03-09] MEDS: iohexol 350 mg/mL 100 mL Btl IV (01:16)
[2022-03-09 01:19] VITALS: RESP 19
[2022-03-09] MEDS: morphine 4 mg/mL SDV 1 mL IVP (01:19)
== END 2022-03-09 02:19 | disposition home or self-care (01) ==
PROVIDERS: Emergency Provider Emergency Medicine; PCP Family Medicine
DX: R51.9 Headache, unspecified (principal); Z79.82 Long term (current) use of aspirin
CPT/HCPCS: 36415; 70450; 70496; 70498; 80053; 85025; 96374; 96375; 99285; J1200; J2270; J2765; Q9967

== ENCOUNTER 2022-05-02 10:08 | Outpatient (CLI) | payer OTHER, SELFPAY ==
[2022-05-02 10:39] LABS: Basophils % 0.2 %; Eosinophils % 0.1 %; Hematocrit 40.8 % (37.0-47.0); Hemoglobin 12.9 g/dL (11.5-15.3); Lymphocytes # 0.5 10^3/uL (0.8-4.8); Lymphocytes % 6.7 %; Mean Corpuscular HGB Conc 31.6 g/dL (30.0-36.0); Mean Corpuscular Hemoglobin 31.5 pg (28.0-34.0); Mean Corpuscular Volume 99.8 fl (81-99); Mean Platelet Volume 9.8 fL (7.4-10.4); Monocytes # 0.2 10^3/uL (0.2-0.9); Monocytes % 2.6 %; Neutrophils # 7.22 10^3/uL (1.8-7.7); Nucleated Red Blood Cells % 0 %; Platelet Count 225 10^3/cmm (130-400); Red Blood Count 4.09 10^6/uL (4.1-5.3); Red Cell Distribution Width 12.9 % (12.1-15.1)
[2022-05-02 10:54] LABS: Erythrocyte Sedimentation Rate 1 mm/hr (0-15)
[2022-05-02 11:00] LABS: Alanine Aminotransferase 10 U/L (0-33); Albumin Level 4.1 g/dL (3.5-5.2); Alkaline Phosphatase 62 U/L (35-105); Aspartate Amino Transferase 14 U/L (0-32); Creatine Phosphokinase 41 U/L (26-192); Globulin 3.1 g/dL (1.3-4.6); Glomerular Filtration Rate 106.3 mL/min (90-130); Total Bilirubin 0.4 mg/dL (0.15-1.2); Total Protein 7.2 g/dL (6.6-8.7)
[2022-05-03 13:32] LABS: Aldolase 3.4 U/L (< OR = 8.1)
== END 2022-05-02 10:09 | disposition home or self-care (01) ==
LOC: LAB 10:13
PROVIDERS: PCP Family Medicine; Visit Provider Internal Medicine Rheumatology
DX: M33.10 Other dermatomyositis, organ involvement unspecified (principal); Z79.899 Other long term (current) drug therapy
CPT/HCPCS: 36415; 80076; 82085; 82550; 82565; 85025; 85651; 86140

== ENCOUNTER 2022-06-20 15:24 | Outpatient (CLI) | payer OTHER, SELFPAY ==
[2022-06-20 15:58] LABS: Basophils % 0.4 %; Eosinophils # 0.1 10^3/uL (0.0-0.8); Eosinophils % 0.7 %; Hematocrit 40.7 % (37.0-47.0); Lymphocytes # 1.1 10^3/uL (0.8-4.8); Lymphocytes % 11.3 %; Mean Corpuscular HGB Conc 31.9 g/dL (30.0-36.0); Mean Corpuscular Hemoglobin 30.7 pg (28.0-34.0); Mean Corpuscular Volume 96.2 fl (81-99); Monocytes # 0.6 10^3/uL (0.2-0.9); Monocytes % 6.3 %; Neutrophils # 7.75 10^3/uL (1.8-7.7); Neutrophils % 80.9 %; Nucleated Red Blood Cells % 0 %; Platelet Count 268 10^3/cmm (130-400); Red Blood Count 4.23 10^6/uL (4.1-5.3); Red Cell Distribution Width 12.4 % (12.1-15.1); White Blood Count 9.6 10^3/uL (4.0-10.0)
[2022-06-20 16:13] LABS: Alanine Aminotransferase 8 U/L (0-33); Albumin Level 4.1 g/dL (3.5-5.2); Alkaline Phosphatase 76 U/L (35-105); Aspartate Amino Transferase 14 U/L (0-32); Erythrocyte Sedimentation Rate 6 mm/hr (0-15); Globulin 3.3 g/dL (1.3-4.6); Glomerular Filtration Rate 131.1 mL/min (90-130); Total Bilirubin 0.2 mg/dL (0.15-1.2); Total Protein 7.4 g/dL (6.6-8.7)
== END 2022-06-20 15:25 | disposition home or self-care (01) ==
PROVIDERS: PCP Family Medicine; Visit Provider Internal Medicine Rheumatology
DX: M33.10 Other dermatomyositis, organ involvement unspecified (principal); Z79.899 Other long term (current) drug therapy
CPT/HCPCS: 80076; 82565; 85025; 85651

== ENCOUNTER 2022-08-15 09:19 | Outpatient (CLI) | payer OTHER, SELFPAY ==
[2022-08-18 08:14] LABS: Tissue Transglutaminse AB IGA <1.0 U/mL; Tissue Transglutaminse AB IGG <1.0 U/mL
== END 2022-08-15 09:20 | disposition home or self-care (01) ==
LOC: LAB 09:22
PROVIDERS: PCP Family Medicine; Visit Provider Dermatology
DX: K90.41 Non-celiac gluten sensitivity (principal); L13.0 Dermatitis herpetiformis; M33.90 Dermatopolymyositis, unspecified, organ involvement unspecified
CPT/HCPCS: 36415; 83516

== ENCOUNTER 2022-10-30 16:05 | Outpatient (CLI) | payer OTHER, SELFPAY ==
[2022-10-30 17:26] LABS: Erythrocyte Sedimentation Rate 6 mm/hr (0-15)
[2022-10-30 17:29] LABS: Basophils % 0.3 %; Eosinophils # 0.1 10^3/uL (0.0-0.8); Eosinophils % 1.4 %; Hematocrit 41.4 % (37.0-47.0); Hemoglobin 13.1 g/dL (11.5-15.3); Lymphocytes # 1.2 10^3/uL (0.8-4.8); Lymphocytes % 16.8 %; Mean Corpuscular HGB Conc 31.6 g/dL (30.0-36.0); Mean Corpuscular Hemoglobin 30.3 pg (28.0-34.0); Mean Corpuscular Volume 95.8 fl (81-99); Mean Platelet Volume 10.5 fL (7.4-10.4); Monocytes # 0.5 10^3/uL (0.2-0.9); Monocytes % 7.4 %; Neutrophils # 5.32 10^3/uL (1.8-7.7); Neutrophils % 73.8 %; Nucleated Red Blood Cells % 0 %; Platelet Count 259 10^3/cmm (130-400); Red Blood Count 4.32 10^6/uL (4.1-5.3); Red Cell Distribution Width 12.4 % (12.1-15.1); White Blood Count 7.2 10^3/uL (4.0-10.0)
[2022-10-30 17:47] LABS: Alanine Aminotransferase 13 U/L (0-33); Albumin Level 4.9 g/dL (3.5-5.2); Alkaline Phosphatase 48 U/L (35-105); Aspartate Amino Transferase 27 U/L (0-32); Glomerular Filtration Rate 106.3 mL/min (90-130); Total Bilirubin 0.4 mg/dL (0.15-1.2); Total Protein 7.9 g/dL (6.6-8.7)
== END 2022-10-30 16:06 | disposition home or self-care (01) ==
LOC: LAB 16:08
PROVIDERS: PCP Family Medicine; Visit Provider Internal Medicine Rheumatology
DX: M33.10 Other dermatomyositis, organ involvement unspecified (principal); Z79.899 Other long term (current) drug therapy
CPT/HCPCS: 36415; 80076; 82565; 85025; 85651; 86140

== ENCOUNTER → 2022-12-25 09:30 | Outpatient (BNVA) | payer OTHER, SELFPAY | PROVIDERS: PCP Family Medicine; Visit Provider Obstetrics & Gynecology | DX: R63.5 Abnormal weight gain (principal); E34.9 Endocrine disorder, unspecified; R87.1 Abnormal level of hormones in specimens from female genital organs | CPT/HCPCS: 82670; 83001; 83002; 83525; 84403; 84443 ==

== ENCOUNTER → 2023-01-11 12:22 | Outpatient (BNVA) | payer OTHER, SELFPAY | PROVIDERS: PCP Family Medicine; Visit Provider Obstetrics & Gynecology | DX: N85.00 Endometrial hyperplasia, unspecified (principal) | CPT/HCPCS: 76830 ==

== ENCOUNTER 2023-01-24 08:48 | Outpatient (CLI) | payer OTHER, SELFPAY ==
[2023-01-24 09:41] LABS: Basophils % 0.3 %; Eosinophils # 0.1 10^3/uL (0.0-0.8); Eosinophils % 1.7 %; Hematocrit 38.8 % (37.0-47.0); Hemoglobin 11.7 g/dL (11.5-15.3); Lymphocytes # 1.2 10^3/uL (0.8-4.8); Lymphocytes % 20.3 %; Mean Corpuscular HGB Conc 30.2 g/dL (30.0-36.0); Mean Corpuscular Hemoglobin 27.7 pg (28.0-34.0); Mean Corpuscular Volume 91.7 fl (81-99); Mean Platelet Volume 10.3 fL (7.4-10.4); Monocytes # 0.4 10^3/uL (0.2-0.9); Monocytes % 6.6 %; Neutrophils # 4.27 10^3/uL (1.8-7.7); Neutrophils % 70.6 %; Nucleated Red Blood Cells % 0 %; Platelet Count 237 10^3/cmm (130-400); Red Blood Count 4.23 10^6/uL (4.1-5.3); Red Cell Distribution Width 12.2 % (12.1-15.1); White Blood Count 6.1 10^3/uL (4.0-10.0)
[2023-01-24 09:57] LABS: Creatine Phosphokinase 41 U/L (26-192); Glomerular Filtration Rate 106.3 mL/min (90-130)
[2023-01-24 10:14] LABS: Erythrocyte Sedimentation Rate 4 mm/hr (0-15)
[2023-01-26 13:15] LABS: Aldolase 4.3 U/L (< OR = 8.1)
== END 2023-01-24 08:49 | disposition home or self-care (01) ==
PROVIDERS: PCP Family Medicine; Visit Provider Internal Medicine Rheumatology
DX: M33.10 Other dermatomyositis, organ involvement unspecified (principal); Z79.899 Other long term (current) drug therapy
CPT/HCPCS: 36415; 80076; 82085; 82550; 82565; 85025; 85651; 86140

== ENCOUNTER 2023-02-05 12:14 | Outpatient (CLI) | payer OTHER, SELFPAY ==
[2023-02-09 01:09] LABS: Glucose-6-Phosphate Dehydrogen 20.5 U/g Hgb (7.0-20.5)
== END 2023-02-05 12:15 | disposition home or self-care (01) ==
LOC: LAB 12:18
PROVIDERS: PCP Family Medicine; Visit Provider Family Medicine
DX: M33.13 Other dermatomyositis without myopathy (principal); Z79.899 Other long term (current) drug therapy; L13.0 Dermatitis herpetiformis
CPT/HCPCS: 36415; 82955

== ENCOUNTER 2023-02-16 16:12 | Outpatient (CLI) | payer OTHER, SELFPAY ==
[2023-02-21 03:40] LABS: Glucose-6-Phosphate Dehydrogen 20.6 U/g Hgb (7.0-20.5)
== END 2023-02-16 16:13 | disposition home or self-care (01) ==
PROVIDERS: PCP Family Medicine; Visit Provider Dermatology
DX: Z79.899 Other long term (current) drug therapy (principal); M33.13 Other dermatomyositis without myopathy; L13.0 Dermatitis herpetiformis
CPT/HCPCS: 82955

== ENCOUNTER 2023-02-19 17:13 | Outpatient (CLI) | payer OTHER, SELFPAY ==
--- NOTE | 2023-02-19 17:30 | US_ITS ---
WS: [id number] Exam: US soft tissue/extremity [id number] Date/Time of Exam: 02/19/2023 5:18 PM Reason For Exam: swelling superior to olecranon The posterior right lower humeral region just above the elbow is targeted for ultrasound evaluation. There is no evidence of the obvious soft tissue mass. No localized soft tissue fluid collections are identified. Subcutaneous soft tissues are unremarkable. No intramuscular abnormality was demonstrated . Recommendations: If the patient fails to respond to conservative management, further workup with MRI might be considered. US/US soft tissue/extremity [id number] IMPRESSION: 1. No sign of soft tissue mass or abnormal localized fluid collection.
== END 2023-02-19 17:14 | disposition home or self-care (01) ==
LOC: RAD 17:14
PROVIDERS: PCP Family Medicine; Visit Provider Emergency Medicine
DX: M79.89 Other specified soft tissue disorders (principal)
CPT/HCPCS: 76882

== ENCOUNTER 2023-02-23 11:18 | Outpatient (CLI) | payer OTHER, SELFPAY ==
[2023-02-23 12:47] LABS: Basophils % 0.4 %; Eosinophils # 0.1 10^3/uL (0.0-0.8); Eosinophils % 1.7 %; Hematocrit 37.1 % (37.0-47.0); Hemoglobin 11.3 g/dL (11.5-15.3); Lymphocytes # 0.9 10^3/uL (0.8-4.8); Lymphocytes % 16.9 %; Mean Corpuscular HGB Conc 30.5 g/dL (30.0-36.0); Mean Corpuscular Hemoglobin 27.7 pg (28.0-34.0); Mean Corpuscular Volume 90.9 fl (81-99); Mean Platelet Volume 10.6 fL (7.4-10.4); Monocytes # 0.6 10^3/uL (0.2-0.9); Monocytes % 11.4 %; Neutrophils # 3.57 10^3/uL (1.8-7.7); Neutrophils % 69.2 %; Nucleated Red Blood Cells % 0 %; Platelet Count 234 10^3/cmm (130-400); Red Blood Count 4.08 10^6/uL (4.1-5.3); Red Cell Distribution Width 13.1 % (12.1-15.1); White Blood Count 5.2 10^3/uL (4.0-10.0)
== END 2023-02-23 11:19 | disposition home or self-care (01) ==
PROVIDERS: PCP Family Medicine; Visit Provider Dermatology
DX: Z79.899 Other long term (current) drug therapy (principal); M33.10 Other dermatomyositis, organ involvement unspecified; L13.0 Dermatitis herpetiformis
CPT/HCPCS: 36415; 85025

== ENCOUNTER 2023-03-02 10:58 | Outpatient (CLI) | payer OTHER, SELFPAY ==
[2023-03-02 11:30] LABS: Basophils # 0.1 10^3/uL (0.0-0.1); Eosinophils # 0.1 10^3/uL (0.0-0.8); Eosinophils % 1.8 %; Hematocrit 39.5 % (37.0-47.0); Hemoglobin 11.9 g/dL (11.5-15.3); Lymphocytes # 1.2 10^3/uL (0.8-4.8); Lymphocytes % 23.6 %; Mean Corpuscular HGB Conc 30.1 g/dL (30.0-36.0); Mean Corpuscular Volume 89.6 fl (81-99); Mean Platelet Volume 10.3 fL (7.4-10.4); Monocytes # 0.5 10^3/uL (0.2-0.9); Monocytes % 9.6 %; Neutrophils # 3.14 10^3/uL (1.8-7.7); Neutrophils % 63.8 %; Nucleated Red Blood Cells % 0 %; Platelet Count 286 10^3/cmm (130-400); Red Blood Count 4.41 10^6/uL (4.1-5.3); Red Cell Distribution Width 13.4 % (12.1-15.1); White Blood Count 4.9 10^3/uL (4.0-10.0)
== END 2023-03-02 10:59 | disposition home or self-care (01) ==
PROVIDERS: PCP Family Medicine; Visit Provider Dermatology
DX: M33.10 Other dermatomyositis, organ involvement unspecified (principal); Z79.899 Other long term (current) drug therapy
CPT/HCPCS: 36415; 85025

== ENCOUNTER 2023-03-09 09:57 | Outpatient (CLI) | payer OTHER, SELFPAY ==
[2023-03-09 10:23] LABS: Basophils % 0.9 %; Eosinophils # 0.1 10^3/uL (0.0-0.8); Eosinophils % 2.3 %; Hematocrit 37.9 % (37.0-47.0); Hemoglobin 11.5 g/dL (11.5-15.3); Lymphocytes % 30.1 %; Mean Corpuscular HGB Conc 30.3 g/dL (30.0-36.0); Mean Corpuscular Hemoglobin 27.1 pg (28.0-34.0); Mean Corpuscular Volume 89.2 fl (81-99); Monocytes # 0.5 10^3/uL (0.2-0.9); Monocytes % 13.3 %; Neutrophils # 1.83 10^3/uL (1.8-7.7); Neutrophils % 53.1 %; Nucleated Red Blood Cells % 0 %; Platelet Count 229 10^3/cmm (130-400); Red Blood Count 4.25 10^6/uL (4.1-5.3); Red Cell Distribution Width 14.2 % (12.1-15.1); White Blood Count 3.5 10^3/uL (4.0-10.0)
== END 2023-03-09 09:58 | disposition home or self-care (01) ==
LOC: LAB 10:02
PROVIDERS: Dermatology; PCP Family Medicine; Visit Provider Family Medicine
DX: M33.10 Other dermatomyositis, organ involvement unspecified (principal); Z79.899 Other long term (current) drug therapy
CPT/HCPCS: 85025

== ENCOUNTER 2023-03-16 11:16 | Outpatient (CLI) | payer OTHER, SELFPAY ==
[2023-03-16 11:38] LABS: Basophils % 0.8 %; Eosinophils # 0.1 10^3/uL (0.0-0.8); Eosinophils % 1.7 %; Hematocrit 36.5 % (37.0-47.0); Hemoglobin 11.2 g/dL (11.5-15.3); Lymphocytes # 0.8 10^3/uL (0.8-4.8); Lymphocytes % 16.3 %; Mean Corpuscular HGB Conc 30.7 g/dL (30.0-36.0); Mean Corpuscular Hemoglobin 27.3 pg (28.0-34.0); Mean Corpuscular Volume 88.8 fl (81-99); Monocytes # 0.3 10^3/uL (0.2-0.9); Monocytes % 7.2 %; Neutrophils # 3.46 10^3/uL (1.8-7.7); Neutrophils % 73.6 %; Nucleated Red Blood Cells % 0 %; Platelet Count 195 10^3/cmm (130-400); Red Blood Count 4.11 10^6/uL (4.1-5.3); Red Cell Distribution Width 14.6 % (12.1-15.1); White Blood Count 4.7 10^3/uL (4.0-10.0)
== END 2023-03-16 11:17 | disposition home or self-care (01) ==
LOC: LAB 11:19
PROVIDERS: PCP Family Medicine; Visit Provider Dermatology
DX: M33.10 Other dermatomyositis, organ involvement unspecified (principal); Z79.899 Other long term (current) drug therapy
CPT/HCPCS: 36415; 85025

== ENCOUNTER 2023-04-05 06:29 | Day surgery (SDC) | payer OTHER, SELFPAY ==
--- NOTE | 2023-04-03 17:44 | W.PM.OPSFHP ---
Same Day Surgery H&P Indication for Procedure/HPI DATE OF PROCEDURE: April 03, 2023 CHIEF COMPLAINT/INDICATIONFOR SURGICAL PROCEDURE: heavy periods PREOP DIAGNOSIS: menorrhagia PLANNED PROCEDURE: Operation Date: 04/05/23 08:00 Proposed Procedures p Hysteroscopy, endometrial sampling, possible endometrial polypectomy 59553, Endometrial ablation 91379,N93.9(Not Applicable) - Kamaljit Sexton MD s PossPoylpectomy(Not Applicable) - Kamaljit Sexton MD s Endometriosis Cauterization(Not Applicable) - Kamaljit Sexton MD 47 y.o. h/o BTL h/o cervical conization for JOSELIN III has very heavy periods wants endometrial ablation Does not want hormones or mirena IUD Now scheduled for hysteroscopy; endometrial sampling; possible endometrial polypectomy; endometrial ablation Medications/Allergies* Home Medications Medication Instructions Recorded Confirmed Type ascorbic acid (vitamin C) 1,000 mg 1 g PO DAILY 01/11/21 02/14/23 History tablet aspirin 81 mg tablet,delayed 81 mg PO DAILY 04/07/21 02/14/23 History release (Adult Aspirin Regimen) lisinopril 5 mg tablet 5 mg PO DAILY 10/03/21 02/14/23 History dapsone 25 mg tablet 50 mg PO DAILY Dermatomyositis 02/12/23 02/14/23 History Allergies/Adverse Reactions Allergy/AdvReac Type Severity Reaction Status Date / Time isosorbide [From Imdur] Allergy multiple Verified 02/14/23 16:13 problems Pertinent History/Comorbid Conditions* Medical History (Updated 01/08/23 @ 13:45 by Grecia Loomis MD) 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 History of cervical dysplasia HSIL (high grade squamous intraepithelial lesion) on Pap smear of cervix Raised antibody titer HERMANN III (vulvar intraepithelial neoplasia III) Surgical History (Updated 11/01/21 @ 13:57 by Cali Cardona MD) History of bilateral tubal ligation 2009 History of colonoscopy 07/2021 History of cone biopsy of cervix History of hysteroscopy History of tonsillectomy 1977 Hx of LASIK 1999 Family History (Updated 10/03/21 @ 14:31 by Taylor Tristan LPN) Migraine Sister Mother Sister Cancer Sister anal cancer Hypertension Mother Celiac disease Sister Denies family history of Rheumatoid arthritis Diabetes Lupus CAD (coronary artery disease) Clotting disorder Hyperlipidemia Chronic kidney disease (CKD) Bleeding disorder Lung disease Thyroid disease Stroke Social History Smoking and tobacco status: never smoked Alcohol intake: never Pertinent Exam Findings alert, oriented x 3, clear to auscultation bilaterally and regular rate & rhythm Recommendations Surgery/Procedure today Other Plans: plan surgery/procedure April 05, 2023 Coding Level of Care Code Acute Code for Chg Fwd Diagnoses Time Spent (min) 10
[2023-04-04 09:11] VITALS: BMI 21.4
[2023-04-05] VITALS (16 sets, daily range): BP systolic 153–200; BP diastolic 89–114; PULSE 52–77; RESP 12–23; TEMP 36.1–36.6; O2SAT 98–100
[2023-04-05 06:52] LABS: OR HCG Qualitative Urine Negative (Negative)
[2023-04-05] MEDS: sodium chloride 0.9% 1,000 ML 30 ML IV (06:59)
--- NOTE | 2023-04-05 07:50 | W.PM.OPSUD ---
Surgery/Procedure H&P Update DATE OF PROCEDURE: April 05, 2023 DATE H&P PERFORMED: 04/03/23 H&P UPDATE INFORMATION: I have reviewed H&P completed within last 30 days, I have examined patient prior to procedure and No changes to prior documentation PREOP DIAGNOSIS: abnormal uterine bleeding PRIMARY INDICATION FOR PROCEDURE: abnormal uterine bleeding PLANNED PROCEDURE: Operation Date: 04/05/23 08:00 Proposed Procedures p Hysteroscopy, endometrial sampling, possible endometrial polypectomy 37248, Endometrial ablation 72621,N93.9(Not Applicable) - Kamaljit Sexton MD s PossPoylpectomy(Not Applicable) - Kamaljit Sexton MD s Endometriosis Cauterization(Not Applicable) - Kamaljit Sexton MD
--- NOTE | 2023-04-05 08:10 | P.ANESASSM_ITS ---
Pre-Anesthetic Assessment Height/Weight: Height 1.63 m Weight 56.699 kg Temp Pulse Resp BP Pulse Ox O2 Del Method 97.5 F L 60 16 200/114 99 Room Air 04/05/23 06:55 04/05/23 06:55 04/05/23 06:55 04/05/23 06:55 04/05/23 06:55 04/05/23 06:55 Preop Diagnosis: abnormal uterine bleeding Operation Date: 04/05/23 08:00 Proposed Procedures p Hysteroscopy, endometrial sampling, possible endometrial polypectomy 48020, Endometrial ablation 59716,N93.9(Not Applicable) - Kamaljit Sexton MD s PossPoylpectomy(Not Applicable) - Kamaljit Sexton MD s Endometriosis Cauterization(Not Applicable) - Kamaljit Sexton MD Familial anesthetic complications: none Was Beta Dany taken within 24 hours: N/A Was Clonidine taken within 24 hours: N/A Last intake: Intake Last Liquid Date 04/04/23 Last Liquid Time 20:00 Last Solid Date 04/04/23 Last Solid Time 17:30 Last Intake: 20:00 Social No alcohol and No tobacco Exam alert, oriented x 3, clear to auscultation bilaterally and regular rate & rhythm murmur noted Airway Submandibular: within normal limits Cervical ROM: within normal limits Mallampati: Class II Dentition: full Pulmonary None reported CV/HEM Hypertension carotid and heart aneurysm noted and followed by registered occupational therapist in [facility] None reported Hepatic None reported GI None reported Metabolic None reported Musc/skel None reported Neuropsych None reported Anesthetic Plan ASA status: 3 Anesthesia: General Risk of > 500 ml blood loss (7ml/kg in children): No Medications/Allergies Home Medications Medication Instructions Recorded Confirmed Last Taken Type ascorbic acid (vitamin C) 1,000 mg 1 g PO DAILY 01/11/21 04/04/23 04/04/23 History tablet aspirin 81 mg tablet,delayed 81 mg PO BEDTIME 04/07/21 04/05/23 04/03/23 History release (Adult Aspirin Regimen) lisinopril 5 mg tablet 5 mg PO DAILY 10/03/21 04/04/23 04/04/23 History cholecalciferol (vitamin D3) 50 2,000 unit PO DAILY #90 tabs 08/23/22 08/30/23 08/30/23 Rx mcg (2,000 unit) tablet prednisone 5 mg tablet 5 mg PO DAILY #90 tabs 10/31/22 04/04/23 04/04/23 Rx omeprazole 20 mg capsule,delayed 20 mg PO DAILY #90 caps 01/23/23 04/04/23 04/04/23 Rx release Allergies Allergy/AdvReac Type Severity Reaction Status Date / Time isosorbide [From Imdur] Allergy multiple Verified 02/14/23 16:13 problems Current Medications Generic Name Dose Route Start Last Admin Trade Name Jose PRN Reason Stop Dose Admin Sodium Chloride 1,000 mls @ 30 mls/hr 04/05/23 06:45 04/05/23 06:59 Sodium Chloride 0.9% IV 04/06/23 06:44 30 mls/hr .Q24H ERI Administration PFSH Anesthesia Medical History (Updated 04/04/23 @ 09:07 by Raissa Ray RN) 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 History of cervical dysplasia HSIL (high grade squamous intraepithelial lesion) on Pap smear of cervix Raised antibody titer HERMANN III (vulvar intraepithelial neoplasia III) Surgical History History of bilateral tubal ligation 2009 History of colonoscopy 07/2021 History of cone biopsy of cervix History of hysteroscopy History of tonsillectomy 1977 of [facility] 1999 Family History Sister Cancer anal cancer Celiac disease Migraine Mother Hypertension Migraine Sister Migraine Denies family history of Rheumatoid arthritis Diabetes Lupus CAD (coronary artery disease) Clotting disorder Hyperlipidemia Chronic kidney disease (CKD) Bleeding disorder Lung disease Thyroid disease Stroke Social History Smoking and tobacco status: never smoked Alcohol intake: never Female Reproductive History Date of last menstrual period: 01/17/23 Data Anesthesia Cardiac Studies: No Data to Display
[2023-04-05] MEDS: hyDRALAzine 20 mg/mL INJ 1 mL 5 MG IVP (09:39)
--- NOTE | 2023-04-05 10:20 | P.OP_ITS ---
Operative Report Date of procedure: April 05, 2023 Pre-op diagnosis: abnormal uterine bleeding Post-op diagnosis: same Post-op findings: Normal endometrial cavity No endometrial polyps or fibroids Minimal endometrial tissue Procedure done: Hysteroscopy Curettage of uterus Endometrial ablation with Novasure device Specimens removed/disposition: endometrial curettings Surgeon: Kamaljit Sexton MD Anesthesia: General Estimated blood loss (mL): 5 Complications: none Condition: stable Disposition: PACU Brief History: 47 y.o. with very heavy periods wants endometrial ablation Procedure: Informed consent was obtained. The patient was taken to the OR and placed on the table. General endotracheal anesthesia was induced. The patient was then placed in dorsolithotomy position. The perineum were then prepped and draped in the usual fashion. A speculum was placed in the vagina. The anterior lip of the cervix was grasped with a sharp-toothed tenaculum. The uterus was sounded to 8 cm. The cervix was serially dilated with Hegar dilators. . A hysteroscope was placed into the endometrial cavity. The endometrial cavity was seen to be normal. There were no polyps or fibroids. There was minimal endometrial tissue. The hysteroscope was then removed. Endometrial curettage was done with a sharp curette. Endometrial tissue was sent to pathology. The Novasure device was then primed and inserted into the endometrial cavity. The cervical occlusion sleeve was advanced. Cavity integrity test was done. The device was activated for 120 seconds. The Novasure device was then removed. Repeat hysteroscopy showed an intact endometrial cavity with adequate global endometrial ablation. All instruments were then removed. The sharp-toothed tenaculum was removed. There was no bleeding from the endo metrial cavity or cervix. The patient was then placed supine and awakened and taken to the PACU. Postop condition: stable EBL: 5 cc Sponge and instruments counts were normal x 2 Complications: none
--- NOTE | 2023-04-05 10:30 | ANE.PACU2 ---
Inpatient post-anesthesia follow up: Airway intact: Yes Vital signs: Temperature 98 F Pulse Rate 65 Respiratory Rate 17 Blood Pressure 160/95 Pulse Oximetry 99 Oxygen Delivery Me thod Room Air Oxygen Flow Rate Fraction of Inspir ed Oxygen Hydration adequate: Yes Nausea and vomiting: No Pain level: 1 Mental status: Baseline
== END 2023-04-05 10:55 | disposition home or self-care (01) ==
PROVIDERS: PCP Family Medicine; Visit Provider Obstetrics & Gynecology
PROC: 0UJD8ZZ Inspection of Uterus and Cervix, Via Natural or Artificial Opening Endoscopic (ICD-10-PCS; CPT 58555; principal; 2023-04-05 08:00)
PROC: (CPT 58552; 2023-04-05 08:00)
DX: N93.9 Abnormal uterine and vaginal bleeding, unspecified (principal); I10 Essential (primary) hypertension; Z79.82 Long term (current) use of aspirin
CPT/HCPCS: 58552; 81025; 84703; 88305; J0360; J1100; J1885; J2405; J2704; J3010; J7030

== ENCOUNTER 2023-05-03 07:45 | Oncology outpatient (recurring) (ONCR) | payer OTHER, SELFPAY ==
[2023-05-03] VITALS (13 sets, daily range): BP systolic 121–152; BP diastolic 84–105; PULSE 60–78; RESP 16–17; TEMP 36.4–37.2; O2SAT 98–100; BMI 21.8
--- OUTSIDE RECORDS SUMMARY | 2023-05-03 07:45 | XMS_ITS | Patient Health Record ---
Author Name Unknown Organization [facility] Address [address] [place] [address] Support Name Relationship Address Phone LOCOMADONNA LESLIERI Guarantor Unknown [phone] REASON FOR REFERRAL No Information MEDICATIONS Medication SIG (Take, Route, Frequency, Duration) Notes Start Date End Date Status Diclofenac Sodium 0.01 MG/MG Topical Gel Diclofenac Sodium 0.01 MG/MG Topical Gel 09/25/2017 Active cetirizine hydrochloride 10 MG Oral Tablet cetirizine hydrochloride 10 MG Oral Tablet 09/25/2017 Active Ascorbic Acid 500 MG Oral Capsule Ascorbic Acid 500 MG Oral Capsule 09/25/2017 Active Sumatriptan 100 MG Oral Tablet Sumatriptan 100 MG Oral Tablet 09/25/2017 Active tramadol hydrochloride 50 MG Oral Tablet tramadol hydrochloride 50 MG Oral Tablet 09/25/2017 Active gabapentin 100 MG Oral Capsule gabapentin 100 MG Oral Capsule 12/10/2017 Active SOCIAL HISTORY Sex Assigned At : Social History Observation Description Sex Assigned At Unknown PLAN OF TREATMENT No Information
[2023-05-03 08:31] LABS: Basophils % 0.3 %; Eosinophils # 0.1 10^3/uL (0.0-0.8); Eosinophils % 1.9 %; Hematocrit 39.4 % (36-47); Lymphocytes # 1.4 10^3/uL (0.8-4.8); Lymphocytes % 19.9 %; Mean Corpuscular Hemoglobin 28.7 pg (27-33); Mean Corpuscular Volume 89.7 fl (85-98); Mean Platelet Volume 10.7 fL (7.4-10.4); Monocytes # 0.5 10^3/uL (0.2-0.9); Monocytes % 7.3 %; Neutrophils # 4.91 10^3/uL (1.8-7.7); Nucleated Red Blood Cells % 0 %; Platelet Count 235 10^3/cmm (157-399); Red Blood Count 4.39 10^6/uL (3.85-5.65); Red Cell Distribution Width 14.2 % (12.1-15.1)
[2023-05-03] MEDS: sodium chloride 0.9% 250 ML 75 ML IV (08:53)
[2023-05-03] MEDS: acetaminophen 325 mg Tablet 650 MG PO (08:54)
[2023-05-03] MEDS: methylPREDNISolone sod succ 125 mg SDV IVP (08:55)
[2023-05-03 08:56] LABS: Alanine Aminotransferase 7 U/L (0-33); Albumin Level 4.3 g/dL (3.5-5.2); Alkaline Phosphatase 50 U/L (35-105); Aspartate Amino Transferase 12 U/L (0-32); Globulin 2.8 g/dL (1.3-4.6); Glomerular Filtration Rate 75.9 mL/min (90-130); Total Bilirubin 0.4 mg/dL (0.15-1.2); Total Protein 7.1 g/dL (6.6-8.7)
[2023-05-03 09:03] LABS: Erythrocyte Sedimentation Rate 8 mm/hr (0-15)
[2023-05-03] MEDS: diphenhydrAMINE 50 mg/mL SDV 1mL 25 MG IVP (09:03)
[2023-05-03] MEDS: rituximab-pvvr 1,000 MG in sodium chloride 0.9% 500 ML 35 MG IV (10:00)
[2023-05-03] MEDS: sodium chloride 0.9% 500 ML 35 ML IV (11:49)
[2023-05-03] MEDS: diphenhydrAMINE 50 mg/mL SDV 1mL (11:49)
== END 2023-05-05 23:59 | disposition home or self-care (01) ==
PROVIDERS: PCP Family Medicine; Visit Provider Internal Medicine Rheumatology
DX: M33.93 Dermatopolymyositis, unspecified without myopathy (principal)
CPT/HCPCS: 80076; 82565; 85025; 85651; 96360; 96374; 96375; 96413; J1200; J2930; J7040; J7050; Q5119

== ENCOUNTER 2023-05-07 09:30 | Outpatient (CLI) | payer OTHER, SELFPAY ==
--- NOTE | 2023-05-07 09:50 | MM_ITS ---
WS: [id number] BILATERAL 3D TOMOSYNTHESIS DIGITAL DIAGNOSTIC MAMMOGRAPHY WITH CAD CLINICAL INFORMATION: POST BX 02/2022 HISTORY: Post biopsy. 6-month follow-up. COMPARISON: 03/23/2021 TECHNIQUE: Bilateral CC, MLO, and ML views. FINDINGS: The breasts are composed of heterogeneous fibroglandular density, which can limit the detection of sm all underlying mass lesions. RIGHT breast biopsy marker. Dense nodular breast tissue bilaterally is s imilar in appearance. Vascular calcification. Punctate calcifications. No significant interval change s. Ultrasound RIGHT breast is pending. ULTRASOUND BREAST RIGHT TECHNIQUE: Ultrasound right breast focused area of concern. CLINICAL INFORMATION: POST BX 02/2022 FINDINGS: Ultrasound at the [place] demonstrates decrease in size of the previously biopsied retroareo lar nodule with only residual ductal ectasia with debris seen today. Ultrasound RIGHT breast at the 1 o'clock position again demonstrates the hypoechoic lesion measuring 1.0 x 0.7 x 0.9 cm. This is unchanged in size and appearance compared to 02/01/2022. Previous biopsy w as benign. 2 additional adjacent similar-appearing satellite nodules or dilated ducts with debris 1 cm from the nipple measuring 5 to 6 mm also seen on the prior ultrasounds are stable. Recommend return to annual screening mammography. IMPRESSION: MM/[place] [id number] BI-RADS: 2-Benign FOLLOW UP: 1 Year Follow-up Recommend return to annual screening mammography.
== END 2023-05-07 09:31 | disposition home or self-care (01) ==
PROVIDERS: PCP Family Medicine; Visit Provider Family Medicine
DX: N63.12 Unspecified lump in the right breast, upper inner quadrant (principal)
CPT/HCPCS: 76642; 77062; G0279

== ENCOUNTER 2023-07-27 10:48 | Outpatient (CLI) | payer OTHER, SELFPAY ==
[2023-07-27 11:29] LABS: Basophils % 0.5 %; Eosinophils # 0.1 10^3/uL (0.0-0.8); Eosinophils % 2.1 %; Hematocrit 38.2 % (36-47); Lymphocytes # 0.9 10^3/uL (0.8-4.8); Lymphocytes % 21.1 %; Mean Corpuscular HGB Conc 31.7 g/dL (30-55); Mean Corpuscular Hemoglobin 29.2 pg (27-33); Mean Corpuscular Volume 92.3 fl (85-98); Mean Platelet Volume 10.6 fL (7.4-10.4); Monocytes # 0.5 10^3/uL (0.2-0.9); Monocytes % 12.1 %; Neutrophils # 2.69 10^3/uL (1.8-7.7); Neutrophils % 63.7 %; Nucleated Red Blood Cells % 0 %; Platelet Count 213 10^3/cmm (157-399); Red Blood Count 4.14 10^6/uL (3.85-5.65); Red Cell Distribution Width 13.1 % (12.1-15.1); White Blood Count 4.22 10^3/uL (3.29-11.43)
[2023-07-27 11:50] LABS: Alanine Aminotransferase 8 U/L (0-33); Alkaline Phosphatase 51 U/L (35-105); Aspartate Amino Transferase 15 U/L (0-32); Globulin 2.7 g/dL (1.3-4.6); Glomerular Filtration Rate 75.9 mL/min (90-130); Total Bilirubin 0.4 mg/dL (0.15-1.2); Total Protein 6.7 g/dL (6.6-8.7)
== END 2023-07-27 10:49 | disposition home or self-care (01) ==
LOC: LAB 10:48
PROVIDERS: PCP Family Medicine; Visit Provider Internal Medicine Rheumatology
DX: M33.10 Other dermatomyositis, organ involvement unspecified (principal); Z79.899 Other long term (current) drug therapy
CPT/HCPCS: 36415; 80076; 82565; 85025; 86140

== ENCOUNTER 2023-10-07 18:40 | Emergency (ER) | payer OTHER, SELFPAY ==
[2023-10-07] VITALS (13 sets, daily range): BP systolic 136–170; BP diastolic 77–102; PULSE 48–56; RESP 14–18; TEMP 37.3; O2SAT 97–100; BMI 22.3
--- NOTE | 2023-10-07 19:07 | CTR_ITS ---
PROCEDURE INFORMATION: Exam: CTA Head With Contrast, Arteriography Exam date and time: 10/07/2023 7:32 PM Age: 48 years old Clinical indication: Pain; Headache; Additional info: Headache. HX carotid dissection TECHNIQUE: Imaging protocol: Computed tomographic angiography of the head with contrast. Exam focused on the arteries. 3D rendering (Not supervised by radiologist): MIP and/or 3D reconstructed images were created by the technologist. Radiation optimization: All CT scans at this facility use at least one of these dose optimization techniques: automated exposure control; mA and/or kV adjustment per patient size (includes targeted exams where dose is matched to clinical indication); or iterative reconstruction. Contrast material: OMNI 350; Contrast volume: 100 ml; Contrast route: INTRAVENOUS (IV); COMPARISON: CT angio headneck* [id number] 03/09/2022 1:02 AM RADIATION DOSE METRICS: Total DLP (mGy-cm): 994 FINDINGS: ANTERIOR CIRCULATION: Right internal carotid artery: No evidence of thrombosis or aneurysm. No evidence of hemodynamically significant stenosis. No evidence of vascular injury. Right middle cerebral artery: No evidence of thrombosis or aneurysm. Right anterior cerebral artery: No evidence of thrombosis or aneurysm. Left internal carotid artery: No evidence of thrombosis or aneurysm. No evidence of hemodynamically significant stenosis. No evidence of vascular injury. Left middle cerebral artery: No evidence of thrombosis or aneurysm. Left anterior cerebral artery: No evidence of thrombosis or aneurysm. POSTERIOR CIRCULATION: Right vertebral artery: No evidence of thrombosis or aneurysm. No evidence of vascular injury. Left vertebral artery: There is fusiform aneurysmal dilatation of the left vertebral artery V4 segment measuring up to 5.5 mm AP x 6 mm craniocaudal with an irregular contour and possible superimposed saccular aneurysm along the inferior aspect of the vessel (for example, image 81 of the sagittal series 17). Basilar artery: There is ectasia of the proximal basilar artery measuring up to approximately 5 mm in diameter. No evidence of thrombosis. Right posterior cerebral artery: No evidence of thrombosis or aneurysm. Left posterior cerebral artery: No evidence of thrombosis or aneurysm. Brain: No evidence of intracranial hemorrhage. No evidence of mass effect or midline shift. Arguello-white differentiation is grossly maintained. Basilar cisterns are patent. Cerebral ventricles: No hydrocephalus. Bones/joints: The calvarium is intact. Craniocervical junction is intact. Sphenoid sinus mucosal thickening with small fluid levels. Soft tissues: No gross soft tissue abnormality. PROCEDURE INFORMATION: Exam: CTA Neck With Contrast Exam date and time: 10/07/2023 7:32 PM Age: 48 years old Clinical indication: Pain; Headache; Additional info: Headache. HX carotid dissection TECHNIQUE: Imaging protocol: Computed tomographic angiography of the neck with contrast. Exam focused on the cervical segments of the vasculature. 3D rendering (Not supervised by radiologist): MIP and/or 3D reconstructed images were created by the technologist. Radiation optimization: All CT scans at this facility use at least one of these dose optimization techniques: automated exposure control; mA and/or kV adjustment per patient size (includes targeted exams where dose is matched to clinical indication); or iterative reconstruction. Contrast material: OMNI 350; Contrast volume: 100 ml; Contrast route: INTRAVENOUS (IV); COMPARISON: CT angio headneck* [id number] 03/09/2022 1:02 AM RADIATION DOSE METRICS: Total DLP (mGy-cm): 994 FINDINGS: Aorta: Mild aneurysmal dilatation of the ascending thoracic aorta measuring up to 4.3 cm. Common origin of the left common carotid and brachiocephalic arteries. Right common carotid artery: No evidence of hemodynamically significant stenosis. No evidence of dissection. Right internal carotid artery: No evidence of hemodynamically significant stenosis. No evidence of dissection. Right external carotid artery: Patent. Left common carotid artery: No evidence of hemodynamically significant stenosis. No evidence of dissection. Left internal carotid artery: No evidence of hemodynamically significant stenosis. No evidence of dissection. Left external carotid artery: Patent. Right vertebral artery: Patent. No evidence of dissection. Left vertebral artery: Patent. No evidence of dissection. Soft tissues: No gross soft tissue abnormality. No evidence of fluid collection or hematoma. Bones/joints: No evidence of acute fracture or subluxation of the cervical spine. CT/CT angio headneck* [id number] IMPRESSION: 1. No evidence of large vessel occlusion or acute thrombosis in the head. 2. 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 Follow-up neurosurgical evaluation is recommended. 3. Ectasia of the proximal basilar artery. IMPRESSION: 1. No evidence of acute thrombosis or hemodynamically significant stenosis in the neck. 2. Mild aneurysmal dilatation of the ascending thoracic aorta. Follow-up outpatient vascular evaluation is recommended. REFERENCES: NASCET CRITERIA. The degree of stenosis in the cervical segment of the internal carotid artery is based on NASCET criteria. Normal is no stenosis. Mild is less than 50% stenosis. Moderate is 50-69% stenosis. Severe is 70% to 99% stenosis. Total occlusion is no detectable patent lumen.
[2023-10-07] MEDS: fentaNYL 50 mcg/mL INJ 2mL IVP ×3 (19:19→23:42)
[2023-10-07] MEDS: metoclopramide 5 mg/mL SDV 2 mL 10 MG IVP (19:19)
[2023-10-07] MEDS: valproic acid inj 500 MG in sodium chloride 0.9% 50 ML 55 MG IV (19:19)
[2023-10-07 19:30] LABS: Basophils % 0.2 %; Eosinophils # 0.1 10^3/uL (0.0-0.8); Eosinophils % 1.1 %; Hematocrit 44.1 % (36-47); Lymphocytes # 0.9 10^3/uL (0.8-4.8); Mean Corpuscular HGB Conc 32.9 g/dL (30-55); Mean Corpuscular Volume 91.1 fl (85-98); Monocytes # 0.9 10^3/uL (0.2-0.9); Monocytes % 10.5 %; Neutrophils # 6.52 10^3/uL (1.8-7.7); Neutrophils % 76.8 %; Nucleated Red Blood Cells % 0 %; Platelet Count 226 10^3/cmm (157-399); Red Blood Count 4.84 10^6/uL (3.85-5.65); Red Cell Distribution Width 12.3 % (12.1-15.1); White Blood Count 8.48 10^3/uL (3.29-11.43)
[2023-10-07] MEDS: iohexol 350 mg/mL 500 mL Btl (per mL) IV (19:36)
[2023-10-07 19:40] LABS: INR 1.01 (0.8-1.2)
[2023-10-07 19:41] LABS: Partial Thromboplastin Time 28.7 SECONDS (23.9-36.7)
--- NOTE | 2023-10-07 19:51 | W.ED.HA ---
HPI - Headache General: Chief Complaint: Headache Stated Complaint: migraine pain where artory disection was and more Time Seen by Provider: 10/07/23 18:53 History of Present Illness: 48-year-old female with a history of hypertension, and a history of left carotid dissection. She presents with a headache for the last 2 days. She has vomited multiple times. She does have a history of migraine as well. She took her migraine medicine, which currently, is hydrocodone, without relief at home. She was started on cyclosporine recently for dermatomyositis, but has not had a dose in the last 2 days. Pain is left-sided, at the base of her head and radiates to the top of her head. No slurred speech. No significant one-sided weakness, no significant problems with vision, although yesterday she did have some scotoma she says. Associated symptoms: Deny chest pain, confusion, fever(s), nausea, rash or vomiting Review of Systems Const: Denies: fever(s), chills or body aches Eyes: Denies: change in vision Card: Denies: chest pain or palpitations Resp: Denies: dyspnea, productive cough, non-productive cough or wheezing GI: Denies: abdominal pain, nausea, vomiting, diarrhea or hematochezia : Denies: difficulty voiding Skin/Breast: Denies: rash Neuro: Denies: weakness in extremities, dizziness or confusion PFSH ED PFSH: Medical History Raised antibody titer Dissection of left carotid artery HERMANN III (vulvar intraepithelial neoplasia III) HSIL (high grade squamous intraepithelial lesion) on Pap smear of cervix History of cervical dysplasia Amyopathic dermatomyositis Autoimmune dermatitis Surgical History History of hysteroscopy History of cone biopsy of cervix History of tonsillectomy 1977 Hx of LASIK 2000 History of bilateral tubal ligation 2009 History of colonoscopy 07/2021 Family History Sister Cancer anal cancer Celiac disease Migraines Mother Hypertension Migraines Sister Migraines Denies family history of Rheumatoid arthritis Diabetes Lupus CAD (coronary artery disease) Clotting disorder Hyperlipidemia Chronic kidney disease (CKD) Bleeding disorder Lung disease Thyroid disease Stroke Social History Smoking and tobacco/nicotine status: never used tobacco/nicotine Alcohol intake: never Physical Exam Const: COMMON NORMALS: no acute distress, patient oriented x3 and alert GENERAL APPEARANCE: cooperative; not ill appearing and not frail appearing HENMT: COMMON NORMALS: normocephalic, atraumatic and Normal external nose present HEAD & SCALP: normocephalic and atraumatic FACE & SINUS: normal facial exam and face symmetric NOSE: Normal external nose present Eye: COMMON NORMALS: Equal, round and reactive pupils present and EOMs intact bilaterally PUPIL: Yes Equal, round and reactive pupils present Neck/C-Spine: GENERAL: Yes trachea midline Chest: CHEST: Yes Symmetrical chest wall rise Resp: COMMON NORMALS: normal respiratory effort, No retractions, No use of accessory muscles and clear to auscultation bilaterally AUSCULTATION: clear to auscultation bilaterally Cardio: COMMON NORMALS: regular rate and regular rhythm RATE: regular rate RHYTHM: regular rhythm GI: COMMON NORMALS: Normal to inspection, nondistended, normoactive bowel sounds present Extremity: COMMON NORMALS: no pedal edema Neuro: ZAID COMA SCALE: document GCS findings Zaid coma scale eye opening: Spontaneous [place] coma scale verbal response: Orientated Zaid coma scale motor response: Obey commands [place] coma scale total score: 15 COMMON NORMALS: patient oriented x3 SENSORIUM/ORIENTATION: Yes alert CRANIAL NERVES: Yes CN normal except as noted SPEECH: speech normal GAIT: Yes Normal gait present SENSORY EXAM: Yes extremities (intact) MOTOR EXAM: Normal motor muscle tone present throughout Psych: COMMON NORMALS: speech normal SPEECH: Yes normal speech Skin: COMMON NORMALS: no rashes or lesions noted GENERAL SKIN EXAM: no rashes or lesions noted Course Vital Signs: Vital signs: Vital Signs Temperature 99.1 F 10/07/23 18:44 Pulse Rate 50 L 10/07/23 22:00 Respiratory Rate 16 10/07/23 23:42 Blood Pressure 167/98 10/07/23 22:00 Pulse Oximetry 99 10/07/23 23:42 Oxygen Delivery Me thod Room Air 10/07/23 18:44 MDM - Headache Medical Decision Making Headache is improved after fentanyl, Depacon, Reglan. She rates it at a 4 out of 10 if she moves, 0 out of 10 if she does not move. Neurologically, she is fully intact and has no symptoms. CTA of the head and neck does not show any occlusion, or dissection. It does, however, show aneurysmal dilatation of the left vertebral artery at the V4 segment. 5.5 x 6 mm. This was not present on a CTA dated March 2022. We have reached out to [facility] neurosurgery in [place] because of this abnormal finding. Awaiting a callback. Spoke with neurosurgery on-call and [facility]. Dr. Ham. He has reviewed her images. I reviewed the patient's symptoms and physical exam with him. He notes that given her presentation, and the images available, she may follow-up as an outpatient for continued monitoring. No emergent intervention needed at this point. Patient's headache is still improved. She is relieved. She is counseled on her diagnosis and need for follow-up. She will be allowed discharge. Lab Data 10/07/23 19:18 10/07/23 19:18 Radiology Impressions Head/Neck CTA 10/07/23 19:07 IMPRESSION: 1. No evidence of large vessel occlusion or acute thrombosis in the head. 2. 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 Follow-up neurosurgical evaluation is recommended. 3. Ectasia of the proximal basilar artery. IMPRESSION: 1. No evidence of acute thrombosis or hemodynamically significant stenosis in the neck. 2. Mild aneurysmal dilatation of the ascending thoracic aorta. Follow-up outpatient vascular evaluation is recommended. REFERENCES: NASCET CRITERIA. The degree of stenosis in the cervical segment of the internal carotid artery is based on NASCET criteria. Normal is no stenosis. Mild is less than 50% stenosis. Moderate is 50-69% stenosis. Severe is 70% to 99% stenosis. Total occlusion is no detectable patent lumen. Laboratory Results WBC 8.48 10^3/uL (3.29-11.43) 10/07/23 19:18 RBC 4.84 10^6/uL (3.85-5.65) 10/07/23 19:18 Hgb 14.50 g/dL (11.27-16.99) 10/07/23 19:18 Hct 44.1 % (36-47) 10/07/23 19:18 MCV 91.1 fl (85-98) 10/07/23 19:18 MCH 30.0 pg (27-33) 10/07/23 19:18 MCHC 32.9 g/dL (30-55) 10/07/23 19:18 RDW 12.3 % (12.1-15.1) 10/07/23 19:18 Plt Count 226 10^3/cmm (157-399) 10/07/23 19:18 MPV 11.0 fL (7.4-10.4) H 10/07/23 19:18 Neut % (Auto) 76.8 % 10/07/23 19:18 Lymph % (Auto) 11.0 % 10/07/23 19:18 Sunflower % (Auto) 10.5 % 10/07/23 19:18 Eos % (Auto) 1.1 % 10/07/23 19:18 Baso % (Auto) 0.2 % 10/07/23 19:18 Neut # (Auto) 6.52 10^3/uL (1.8-7.7) 10/07/23 19:18 Lymph # (Auto) 0.9 10^3/uL (0.8-4.8) 10/07/23 19:18 Sunflower # (Auto) 0.9 10^3/uL (0.2-0.9) 10/07/23 19:18 Eos # (Auto) 0.1 10^3/uL (0.0-0.8) 10/07/23 19:18 Baso # (Auto) 0.0 10^3/uL (0.0-0.1) 10/07/23 19:18 Nucleated RBC % (auto) 0 % 10/07/23 19:18 Nucleated RBCs # 0.0 /100WBC 10/07/23 19:18 PT 13.60 SECONDS (12.1-14.9) 10/07/23 19:18 INR 1.01 (0.8-1.2) 10/07/23 19:18 APTT 28.7 SECONDS (23.9-36.7) 10/07/23 19:18 Sodium 128 mmol/L (136-145) L 10/07/23 19:18 Potassium 3.9 mmol/L (3.5-5.1) 10/07/23 19:18 Chloride 94 mmol/L (98-107) L 10/07/23 19:18 Carbon Dioxide 25 mmol/L (22-29) 10/07/23 19:18 Anion Gap 12.9 (5-19) 10/07/23 19:18 BUN 10 mg/dL (6-20) 10/07/23 19:18 Creatinine 0.7 mg/dL (0.5-0.9) 10/07/23 19:18 GFR Calculation 88.6 mL/min (90-130) L 10/07/23 19:18 Glucose 105 mg/dL (65-115) 10/07/23 19:18 Calculated Osmolality 265 mOsm/kg (285-295) L 10/07/23 19:18 Calcium 9.1 mg/dL (8.5-10.5) 10/07/23 19:18 Magnesium 1.8 mg/dL (1.7-2.3) 10/07/23 19:18 Total Bilirubin 1.0 mg/dL (0.15-1.2) 10/07/23 19:18 AST 13 U/L (0-32) 10/07/23 19:18 ALT 12 U/L (0-33) 10/07/23 19:18 Alkaline Phosphatase 67 U/L (35-105) 10/07/23 19:18 Total Protein 7.4 g/dL (6.6-8.7) 10/07/23 19:18 Albumin 4.4 g/dL (3.5-5.2) 10/07/23 19:18 Globulin 3.0 g/dL (1.3-4.6) 10/07/23 19:18 All radiology interpretation(s) finalized by discharge Discharge Plan Discharge Patient Disposition: Home Clinical Impression: Headache, Aneurysm of left vertebral artery Condition: Stable Prescriptions: No Action ascorbic acid (vitamin C) 1,000 mg tablet 1 g PO DAILY aspirin [Adult Aspirin Regimen] 81 mg tablet,delayed release (DR/EC) 81 mg PO BEDTIME lisinopril 5 mg tablet 5 mg PO DAILY cholecalciferol (vitamin D3) 50 mcg (2,000 unit) tablet 2,000 unit PO DAILY Qty: 90 1RF omeprazole 20 mg capsule,delayed release(DR/EC) 20 mg PO DAILY Qty: 90 1RF prednisone 5 mg tablet 5 mg PO DAILY Qty: 90 1RF cyclosporine modified 50 mg capsule See Rx Instructions PO DAILY Qty: 90 3RF Rx Instructions: take 2 capsules in am and 1 capsule in evening. orally daily; Discharge Orders: Discharge ED (Routine); Ordered 10/07/23 Ordered By: Rickey Hwang Referrals: France Villegas MD [Primary Care Provider] - 1-3 days Patient Instructions: Acute Headache (ED), Opioid Safety, Pain Management Activity Restrictions/Additional Instructions: Return for worsening mental status, vision trouble, weakness, trouble with your language, other new or concerning symptoms. Watch your blood pressure closely. Return also for worsening headache despite treatment. Follow-up with neurosurgery. They should give you a call this week. Contact information has been printed for you as well. See your doctor this week. Coding Level of Care Code ED Patient Relations Manager for Melanie Serrano
[2023-10-07 19:52] LABS: Alanine Aminotransferase 12 U/L (0-33); Albumin Level 4.4 g/dL (3.5-5.2); Alkaline Phosphatase 67 U/L (35-105); Anion Gap 12.9 (5-19); Aspartate Amino Transferase 13 U/L (0-32); Blood Urea Nitrogen 10 mg/dL (6-20); Calcium 9.1 mg/dL (8.5-10.5); Carbon Dioxide 25 mmol/L (22-29); Chloride 94 mmol/L (98-107); Creatinine Clr Calc Pharmacy 85.6175; Glomerular Filtration Rate 88.6 mL/min (90-130); Glucose 105 mg/dL (65-115); Magnesium 1.8 mg/dL (1.7-2.3); Osmolality Calculated 265 mOsm/kg (285-295); Potassium 3.9 mmol/L (3.5-5.1); Sodium 128 mmol/L (136-145); Total Protein 7.4 g/dL (6.6-8.7)
[2023-10-07] MEDS: dexamethasone 10 mg/mL INJ 6 MG IVP (23:42)
[2023-10-07] MEDS: ketorolac 30 mg/mL INJ 15 MG IVP (23:42)
[2023-10-08 00:26] VITALS: BP 146/89; PULSE 50; RESP 16; O2SAT 97
== END 2023-10-08 00:02 | disposition home or self-care (01) ==
PROVIDERS: Emergency Provider Emergency Medicine; PCP Family Medicine
DX: R51.9 Headache, unspecified (principal); I72.6 Aneurysm of vertebral artery; Z79.82 Long term (current) use of aspirin
CPT/HCPCS: 36415; 70496; 70498; 80053; 83735; 85025; 85610; 85730; 96365; 96375; 96376; 99285; J1100; J1885; J2765; J3010; J3490; Q9967

== ENCOUNTER 2024-01-10 16:39 | Outpatient (CLI) | payer OTHER, SELFPAY ==
[2024-01-10 17:20] LABS: Erythrocyte Sedimentation Rate 6 mm/hr (0-15)
[2024-01-10 17:57] LABS: Creatine Phosphokinase 122 U/L (26-192)
== END 2024-01-10 16:40 | disposition home or self-care (01) ==
LOC: LAB 16:41
PROVIDERS: PCP Internal Medicine Rheumatology; Visit Provider Internal Medicine Rheumatology
DX: M62.81 Muscle weakness (generalized) (principal)
CPT/HCPCS: 36415; 82085; 82550; 85651; 86140

== ENCOUNTER 2024-02-26 08:58 | Outpatient (CLI) | payer OTHER, SELFPAY ==
[2024-02-26 09:13] LABS: Basophils # 0.1 10^3/uL (0.0-0.1); Basophils % 0.8 %; Eosinophils # 0.1 10^3/uL (0.0-0.8); Eosinophils % 1.9 %; Lymphocytes # 1.6 10^3/uL (0.8-4.8); Lymphocytes % 27.3 %; Mean Corpuscular HGB Conc 32.4 g/dL (30-55); Mean Corpuscular Hemoglobin 30.5 pg (27-33); Mean Corpuscular Volume 94.1 fl (85-98); Mean Platelet Volume 10.9 fL (7.4-10.4); Monocytes # 0.6 10^3/uL (0.2-0.9); Monocytes % 10.6 %; Neutrophils # 3.51 10^3/uL (1.8-7.7); Neutrophils % 59.1 %; Nucleated Red Blood Cells % 0 %; Platelet Count 256 10^3/cmm (157-399); Red Blood Count 4.78 10^6/uL (3.85-5.65); Red Cell Distribution Width 11.9 % (12.1-15.1); White Blood Count 5.94 10^3/uL (3.29-11.43)
[2024-02-26 09:38] LABS: Alanine Aminotransferase 8 U/L (0-33); Albumin Level 4.5 g/dL (3.5-5.2); Alkaline Phosphatase 75 U/L (35-105); Aspartate Amino Transferase 16 U/L (0-32); Globulin 3.3 g/dL (1.3-4.6); Glomerular Filtration Rate 75.9 mL/min (90-130); Total Bilirubin 0.6 mg/dL (0.15-1.2); Total Protein 7.8 g/dL (6.6-8.7)
== END 2024-02-26 08:59 | disposition home or self-care (01) ==
LOC: LAB 08:59
PROVIDERS: PCP Family Medicine; Visit Provider Internal Medicine Rheumatology
DX: Z79.899 Other long term (current) drug therapy (principal); M33.10 Other dermatomyositis, organ involvement unspecified
CPT/HCPCS: 36415; 80076; 82565; 85025; 86140

== ENCOUNTER 2024-03-10 10:56 | Outpatient (CLI) | payer OTHER, SELFPAY | END 2024-03-10 10:57 | disposition home or self-care (01) | LOC: LAB 10:57 | PROVIDERS: PCP Family Medicine; Visit Provider Internal Medicine Rheumatology | DX: G70.00 Myasthenia gravis without (acute) exacerbation (principal) | CPT/HCPCS: 36415; 83516; 83519; 86255 ==

== ENCOUNTER 2024-05-08 12:55 | Outpatient (CLI) | payer OTHER, SELFPAY ==
[2024-05-08 13:38] LABS: Basophils % 0.4 %; Eosinophils # 0.1 10^3/uL (0.0-0.8); Eosinophils % 0.8 %; Hematocrit 41.6 % (36-47); Lymphocytes # 1.1 10^3/uL (0.8-4.8); Lymphocytes % 13.9 %; Mean Corpuscular HGB Conc 33.9 g/dL (30-55); Mean Corpuscular Hemoglobin 31.3 pg (27-33); Mean Corpuscular Volume 92.2 fl (85-98); Mean Platelet Volume 11.1 fL (7.4-10.4); Monocytes # 0.5 10^3/uL (0.2-0.9); Monocytes % 6.2 %; Neutrophils # 6.04 10^3/uL (1.8-7.7); Neutrophils % 78.4 %; Nucleated Red Blood Cells % 0 %; Platelet Count 277 10^3/cmm (157-399); Red Blood Count 4.51 10^6/uL (3.85-5.65); Red Cell Distribution Width 11.9 % (12.1-15.1)
[2024-05-08 13:55] LABS: Alanine Aminotransferase 8 U/L (0-33); Albumin Level 4.4 g/dL (3.5-5.2); Alkaline Phosphatase 103 U/L (35-105); Anion Gap 14.7 (5-19); Aspartate Amino Transferase 19 U/L (0-32); Blood Urea Nitrogen 11 mg/dL (6-20); Calcium 9.5 mg/dL (8.5-10.5); Carbon Dioxide 26 mmol/L (22-29); Chloride 102 mmol/L (98-107); Creatine Phosphokinase 84 U/L (26-192); Globulin 3.3 g/dL (1.3-4.6); Glomerular Filtration Rate 75.6 mL/min (90-130); Glucose 120 mg/dL (65-115); Magnesium 1.7 mg/dL (1.7-2.3); Osmolality Calculated 289 mOsm/kg (285-295); Potassium 3.7 mmol/L (3.5-5.1); Sodium 139 mmol/L (136-145); Total Bilirubin 0.7 mg/dL (0.15-1.2); Total Protein 7.7 g/dL (6.6-8.7); Uric Acid 4.1 mg/dL (2.4-5.7)
== END 2024-05-08 12:56 | disposition home or self-care (01) ==
LOC: LAB 12:55
PROVIDERS: PCP Family Medicine; Visit Provider Dermatology
DX: Z79.899 Other long term (current) drug therapy (principal)
CPT/HCPCS: 36415; 80053; 82085; 82550; 83735; 84550; 85025

== ENCOUNTER 2024-05-27 09:03 | Outpatient (CLI) | payer OTHER, SELFPAY | END 2024-05-27 09:04 | disposition home or self-care (01) | PROVIDERS: PCP Family Medicine; Visit Provider Family Medicine | DX: R06.09 Other forms of dyspnea (principal) | CPT/HCPCS: 94010; 94726; 94729 ==

== ENCOUNTER 2024-07-15 16:31 | Outpatient (CLI) | payer SELFPAY ==
[2024-07-15 16:53] LABS: Basophils % 0.5 %; Eosinophils # 0.1 10^3/uL (0.0-0.8); Eosinophils % 1.8 %; Lymphocytes # 1.3 10^3/uL (0.8-4.8); Lymphocytes % 20.4 %; Mean Corpuscular HGB Conc 32.7 g/dL (30-55); Mean Corpuscular Hemoglobin 30.6 pg (27-33); Mean Corpuscular Volume 93.4 fl (85-98); Mean Platelet Volume 9.8 fL (7.4-10.4); Monocytes # 0.5 10^3/uL (0.2-0.9); Monocytes % 7.7 %; Neutrophils # 4.33 10^3/uL (1.8-7.7); Neutrophils % 69.4 %; Nucleated Red Blood Cells % 0 %; Platelet Count 252 10^3/cmm (157-399); Red Blood Count 3.96 10^6/uL (3.85-5.65); Red Cell Distribution Width 12.1 % (12.1-15.1); White Blood Count 6.23 10^3/uL (3.29-11.43)
[2024-07-15 16:55] LABS: Erythrocyte Sedimentation Rate 12 mm/hr (0-15)
[2024-07-15 18:59] LABS: Alanine Aminotransferase 10 U/L (0-33); Albumin Level 4.4 g/dL (3.5-5.2); Alkaline Phosphatase 91 U/L (35-105); Aspartate Amino Transferase 17 U/L (0-32); Creatine Phosphokinase 78 U/L (26-192); Globulin 3.1 g/dL (1.3-4.6); Glomerular Filtration Rate 130.1 mL/min (90-130); Total Bilirubin 0.2 mg/dL (0.15-1.2); Total Protein 7.5 g/dL (6.6-8.7)
[2024-07-18 13:36] LABS: Aldolase 3.1 U/L (< OR = 8.1)
== END 2024-07-15 16:32 | disposition home or self-care (01) ==
LOC: LAB 16:32
PROVIDERS: PCP Family Medicine; Visit Provider Internal Medicine Rheumatology
DX: M33.10 Other dermatomyositis, organ involvement unspecified (principal); Z79.899 Other long term (current) drug therapy
CPT/HCPCS: 36415; 80076; 82085; 82550; 82565; 85025; 85651; 86140

== ENCOUNTER 2025-01-02 15:16 | Outpatient (CLI) | payer OTHER, SELFPAY ==
--- NOTE | 2025-01-02 15:18 | USR_ITS ---
PROCEDURE INFORMATION: Exam: US Pelvis, Complete, Non-Obstetric Exam date and time: 01/02/2025 4:02 PM Age: 49 years old Clinical indication: Condition or disease; Other: Other dermatomyositis w/o myopathy TECHNIQUE: Imaging protocol: Transabdominal pelvic nonobstetric ultrasound. Complete exam. Real time ultrasound with image documentation. COMPARISON: CT chest abd w con*[id number] 06/03/2021 1:18 PM FINDINGS: Uterus: Uterus is normal, measuring 6.3 x 3.9 x 4.6 cm. Endometrial stripe measures up to 0.5 cm in thickness. Right ovary/adnexa: Ovary not clearly seen. Left ovary/adnexa: Ovary not clearly seen. Within the left adnexal region along the left lateral aspect of the uterus, there is a 1.6 x 1.8 x 1.9 cm anechoic structure with an adjacent 1.3 x 1.5 x 0.8 cm hypoechoic to nearly anechoic structure. Intraperitoneal space: No intraperitoneal fluid. Urinary bladder: Normal. US/US pelvic complete* [id number] IMPRESSION: 1. Cystic lesions within the left adnexa, one of which has some internal echoes. Recommend 6-12 week follow-up to ensure resolution. 2. Ovaries not clearly visualized, likely obscured by shadowing from bowel gas. 3. Endometrial stripe upper normal limits in thickness for a postmenopausal patient. Attention on follow-up recommended.
== END 2025-01-02 15:17 | disposition home or self-care (01) ==
PROVIDERS: PCP Family Medicine; Visit Provider Dermatology
DX: M33.13 Other dermatomyositis without myopathy (principal); R93.89 Abnormal findings on diagnostic imaging of other specified body structures
CPT/HCPCS: 76856

== ENCOUNTER 2025-01-12 09:09 | Outpatient (CLI) | payer OTHER, SELFPAY ==
[2025-01-12 09:40] LABS: Basophils % 0.6 %; Eosinophils # 0.2 10^3/uL (0.0-0.8); Eosinophils % 3.2 %; Hematocrit 41.1 % (36-47); Lymphocytes # 1.3 10^3/uL (0.8-4.8); Lymphocytes % 26.3 %; Mean Corpuscular HGB Conc 32.4 g/dL (30-55); Mean Corpuscular Hemoglobin 30.3 pg (27-33); Mean Corpuscular Volume 93.6 fl (85-98); Mean Platelet Volume 9.9 fL (7.4-10.4); Monocytes # 0.5 10^3/uL (0.2-0.9); Monocytes % 9.1 %; Neutrophils # 2.98 10^3/uL (1.8-7.7); Neutrophils % 60.4 %; Nucleated Red Blood Cells % 0 %; Platelet Count 303 10^3/cmm (157-399); Red Blood Count 4.39 10^6/uL (3.85-5.65); White Blood Count 4.94 10^3/uL (3.29-11.43)
[2025-01-12 10:02] LABS: Alanine Aminotransferase 13 U/L (0-33); Albumin Level 4.5 g/dL (3.5-5.2); Alkaline Phosphatase 98 U/L (35-105); Aspartate Amino Transferase 19 U/L (0-32); Globulin 3.2 g/dL (1.3-4.6); Glomerular Filtration Rate 105.4 mL/min (90-130); Total Bilirubin 0.3 mg/dL (0.15-1.2); Total Protein 7.7 g/dL (6.6-8.7)
[2025-01-12 10:06] LABS: Erythrocyte Sedimentation Rate 28 mm/hr (0-15)
[2025-01-12 10:35] LABS: Hepatitis B Core AB, Total Non-Reactive (Nonreactive); Hepatitis B Surface Antigen Non-Reactive (Nonreactive)
[2025-01-12 11:04] LABS: Hepatitis C Virus Antibody Non-Reactive (Nonreactive)
[2025-01-15 10:58] LABS: Quantiferon Mitogen 4.56 IU/mL; Quantiferon Nil 0.01 IU/mL; Quantiferon TB Gold NEGATIVE (NEGATIVE)
== END 2025-01-12 09:10 | disposition home or self-care (01) ==
PROVIDERS: PCP Family Medicine; Visit Provider Internal Medicine Rheumatology
DX: Z79.899 Other long term (current) drug therapy (principal)
CPT/HCPCS: 36415; 80076; 82565; 85025; 85651; 86140; 86480; 86704; 86803; 87340

== ENCOUNTER 2025-01-19 10:31 | Outpatient (CLI) | payer OTHER, SELFPAY ==
--- NOTE | 2025-01-19 10:33 | MM_ITS ---
WS: [id number] BILATERAL 3D TOMOSYNTHESIS DIGITAL SCREENING MAMMOGRAPHY WITH CAD CLINICAL INFORMATION: SCREENING HISTORY: Screening mammogram. No current complaints. COMPARISON: 2022 TECHNIQUE: Bilateral CC and MLO views. FINDINGS: The breasts are composed of heterogeneous fibroglandular density tissue, which can limit the detection of small underlying mass lesions. No suspicious mass, asymmetry, calcifications, or architectural distortion. No evidence of malignancy. Biopsy clip RIGHT breast. Incidental punctate calcifications LEFT breast. Nodular LEFT breast tissue similar in appearance MM/MM [facility] tomosynthesis [id number] IMPRESSION: DENSITY: The breasts are heterogeneously dense, which may obscure small masses. BI-RADS: 2 - Benign FOLLOW UP: 1 Year Follow-up Recommend return to annual screening mammography.
== END 2025-01-19 10:32 | disposition home or self-care (01) ==
PROVIDERS: PCP Family Medicine; Visit Provider Family Medicine
DX: Z12.31 Encounter for screening mammogram for malignant neoplasm of breast (principal)
CPT/HCPCS: 77063; 77067

== ENCOUNTER 2025-02-16 07:53 | Oncology outpatient (recurring) (ONCR) | payer OTHER, SELFPAY ==
[2025-02-16] MEDS: methylPREDNISolone sod succ 40 mg/mL INJ IVP (08:55)
[2025-02-16 09:09] VITALS: BP 135/89; PULSE 62; RESP 16; TEMP 36.4; O2SAT 99
[2025-02-16] MEDS: anifrolumab-fnia 300 MG in sodium chloride 0.9% (100 ml) 100 ML 204 MG IV (09:27)
[2025-02-16 11:00] VITALS: BP 120/91; PULSE 63; RESP 16; TEMP 35.8; O2SAT 100
== END 2025-03-05 23:59 | disposition home or self-care (01) ==
PROVIDERS: PCP Family Medicine; Visit Provider Internal Medicine Rheumatology
DX: M33.13 Other dermatomyositis without myopathy (principal); Z79.899 Other long term (current) drug therapy
CPT/HCPCS: 96375; 96413; A4222; J0491; J2919; J7050; J9999

== ENCOUNTER 2025-03-17 08:00 | Oncology outpatient (recurring) (ONCR) | payer OTHER, SELFPAY ==
--- NOTE | 2025-03-09 07:34 | US_ITS ---
WS: [id number] US pelv w/transvag [id number] HISTORY: LEFT SIDE OVARIAN CYST COMPARISON: 01/02/2025 Uterus: 6.3 cm x 3.3 cm x 3.5 cm. Normal size anteverted uterus. No fibroid or mass. Endometrium: 0.6 cm. Neither ovary is identified on today's exam. There is a large amount of bowel gas. No free fluid in the cul-de-sac. US/US pelv w/transvag [id number] IMPRESSION: 1. Neither ovary identified on today's exam. No cyst within the adnexa structu re identified. 2. Normal uterus.
[2025-03-17] MEDS: methylPREDNISolone sod succ 40 mg/mL INJ IVP (08:40)
[2025-03-17] MEDS: anifrolumab-fnia 300 MG in sodium chloride 0.9% (100 ml) 100 ML 204 MG IV (09:19)
[2025-03-17 10:04] VITALS: BP 146/92; PULSE 53; RESP 18; O2SAT 97
== END 2025-04-05 23:59 | disposition home or self-care (01) ==
PROVIDERS: PCP Family Medicine; Visit Provider Internal Medicine Rheumatology
DX: M33.13 Other dermatomyositis without myopathy; Z79.899 Other long term (current) drug therapy; Z53.9 Procedure and treatment not carried out, unspecified reason
CPT/HCPCS: 76830; 76856; 96375; 96413; A4222; J0491; J2919; J7050; J9999

== ENCOUNTER 2025-04-14 07:56 | Oncology outpatient (recurring) (ONCR) | payer OTHER, SELFPAY ==
[2025-04-14] MEDS: methylPREDNISolone sod succ 40 mg/mL INJ IVP (08:43)
[2025-04-14] MEDS: anifrolumab-fnia 300 MG in sodium chloride 0.9% (100 ml) 100 ML 204 MG IV (09:15)
[2025-04-14 09:49] VITALS: BP 129/85; PULSE 69; TEMP 36.1; O2SAT 98
== END 2025-05-05 23:59 | disposition home or self-care (01) ==
PROVIDERS: PCP Family Medicine; Visit Provider Internal Medicine Rheumatology
DX: M33.13 Other dermatomyositis without myopathy (principal); Z79.899 Other long term (current) drug therapy
CPT/HCPCS: 96375; 96413; A4222; J0491; J2919; J9999

== ENCOUNTER 2025-04-21 16:15 | Outpatient (CLI) | payer OTHER, SELFPAY ==
[2025-04-21 16:49] LABS: Hematocrit 37.7 % (36-47); Hemoglobin 12.40 g/dL (11.27-16.99); Mean Corpuscular HGB Conc 32.9 g/dL (30-55); Mean Corpuscular Hemoglobin 29.7 pg (27-33); Mean Corpuscular Volume 90.2 fl (85-98); Nucleated Red Blood Cells % 0 %; Platelet Count 269 10^3/cmm (157-399); Red Blood Count 4.18 10^6/uL (3.85-5.65); White Blood Count 5.88 10^3/uL (3.29-11.43)
[2025-04-21 17:32] LABS: Alanine Aminotransferase 10 U/L (0-33); Albumin Level 4.2 g/dL (3.5-5.2); Alkaline Phosphatase 90 U/L (35-105); Aspartate Amino Transferase 19 U/L (0-32); Globulin 3.3 g/dL (1.3-4.6); Total Protein 7.5 g/dL (6.6-8.7)
== END 2025-04-21 16:16 | disposition home or self-care (01) ==
PROVIDERS: PCP Family Medicine; Visit Provider Internal Medicine Rheumatology
DX: Z79.899 Other long term (current) drug therapy (principal)
CPT/HCPCS: 36415; 80076; 82565; 85025; 85651; 86140

== ENCOUNTER 2025-05-12 08:18 | Oncology outpatient (recurring) (ONCR) | payer OTHER, SELFPAY ==
[2025-05-12 08:11] VITALS: BP 145/93; PULSE 60; RESP 16; TEMP 36.2; O2SAT 99
[2025-05-12] MEDS: methylPREDNISolone sod succ 40 mg/mL INJ IVP (08:22)
[2025-05-12] MEDS: anifrolumab-fnia 300 MG in sodium chloride 0.9% (100 ml) 100 ML 204 MG IV (08:53)
[2025-05-12 09:27] VITALS: BP 154/98; PULSE 62; RESP 16; TEMP 36.3; O2SAT 99
== END 2025-06-05 23:59 | disposition home or self-care (01) ==
PROVIDERS: PCP Family Medicine; Visit Provider Internal Medicine Rheumatology
DX: M33.13 Other dermatomyositis without myopathy (principal); Z79.899 Other long term (current) drug therapy
CPT/HCPCS: 96365; 96375; A4222; J0491; J2919; J7050; J9999

== ENCOUNTER 2025-06-09 07:45 | Oncology outpatient (recurring) (ONCR) | payer OTHER, SELFPAY ==
[2025-06-09] MEDS: methylPREDNISolone sod succ 40 mg/mL INJ IVP (08:14)
[2025-06-09 08:19] VITALS: BP 125/89; PULSE 60; RESP 16; TEMP 36.3; O2SAT 98
[2025-06-09] MEDS: anifrolumab-fnia 300 MG in sodium chloride 0.9% (100 ml) 100 ML 204 MG IV (08:40)
[2025-06-09 09:18] VITALS: BP 135/84; PULSE 60; RESP 16; TEMP 36.2; O2SAT 98
== END 2025-07-05 23:59 | disposition home or self-care (01) ==
PROVIDERS: PCP Family Medicine; Visit Provider Internal Medicine Rheumatology
DX: M33.13 Other dermatomyositis without myopathy (principal); Z79.899 Other long term (current) drug therapy
CPT/HCPCS: 96375; 96413; A4222; J0491; J2919; J7050; J9999

== ENCOUNTER 2025-08-05 09:00 | Oncology outpatient (recurring) (ONCR) | payer OTHER, SELFPAY ==
[2025-07-07 08:12] VITALS: BP 122/88; PULSE 69; TEMP 36.1; O2SAT 96
[2025-07-07] MEDS: methylPREDNISolone sod succ 40 mg/mL INJ IVP (08:39)
[2025-07-07] MEDS: anifrolumab-fnia 300 MG in sodium chloride 0.9% (100 ml) 100 ML 204 MG IV (09:04)
[2025-07-07 09:46] VITALS: BP 133/89; PULSE 64; RESP 17; TEMP 35.9; O2SAT 99
--- NOTE | 2025-07-08 16:13 | US_ITS ---
WS: [id number] ULTRASOUND SOFT TISSUES LEFT third finger. HISTORY: SUBCUTANEOUS MASS OF LEFT THIRD DIGIT COMPARISON: None available. TECHNIQUE: 2-D and color Doppler imaging is submitted. Mild soft tissue thickening in the area of interest of the third finger. There is a hypoechoic area measuring six 6 x 6 x 9 mm which may be a small abscess. There is a small amount of fluid in the area of interest. US/US soft tissue/extremity [id number] IMPRESSION: Very nonspecific ultrasound appearance of the LEFT third digit soft tissue. The re is a small amount of fluid and a small hypoechoic nodule which could be an a bscess or mass. If findings persist consider additional evaluation of the LEFT third digit. MRI with and without contrast may be of benefit.
[2025-08-05] MEDS: methylPREDNISolone sod succ 40 mg/mL INJ IVP (10:42)
[2025-08-05] MEDS: anifrolumab-fnia 300 MG in sodium chloride 0.9% (100 ml) 100 ML 204 MG IV (11:09)
== END 2025-08-05 23:59 | disposition home or self-care (01) ==
PROVIDERS: PCP Family Medicine; Visit Provider Internal Medicine Rheumatology
DX: M33.93 Dermatopolymyositis, unspecified without myopathy; Z79.899 Other long term (current) drug therapy; Z53.9 Procedure and treatment not carried out, unspecified reason
CPT/HCPCS: 76882; 96375; 96413; A4222; J0491; J2919; J7050; J9999